=== PATIENT | male | born 1980 | race Caucasian/White ===

== ENCOUNTER → 2016-08-08 | Outpatient (CLI) | payer BC ==
[2016-08-08 15:52] LABS: BASOPHILS # (AUTO) 0.03 10*3/UL; BASOPHILS % (AUTO) 0.7 % (0-1); EOSINOPHILS % (AUTO) 0.2 % (0-8); HEMATOCRIT 43.3 % (42.0-52.0); HEMOGLOBIN 15.5 g/dL (14.0-18.0); IMM GRAN % (AUTO) 0.4 % (0-5); IMM GRAN# (AUTO) 0.02 10*3/UL; LYMPHOCYTES # (AUTO) 0.93 10*3/uL; LYMPHOCYTES % (AUTO) 20.7 % (10-50); MEAN CORPUSCULAR HEMOGLOBIN 30.3 PG (27-31); MEAN CORPUSCULAR HGB CONC 35.8 g/dL (33-37); MEAN PLATELET VOLUME 9.2 FL (7.4-12.2); MONOCYTES # (AUTO) 0.26 10*3/UL (0.3-0.8); MONOCYTES % (AUTO) 5.8 % (5-15); NEUTROPHILS # (AUTO) 3.25 10*3/UL; NEUTROPHILS % (AUTO) 72.2 % (50-80); RDW COEFFICIENT OF VARIATION 13.5 % (11.5-14.5); RED BLOOD COUNT 5.11 10^6/uL (4.70-6.10)
[2016-08-08 16:13] LABS: PLATELET MORPHOLOGY COMMENT NORMAL MORPHOLOGY (NORM)
[2016-08-08 16:50] LABS: CHLORIDE 99 meq/L (98-112); POTASSIUM 4.1 meq/L (3.8-5.2); SODIUM 136 meq/L (135-145)
[2016-08-08 16:51] LABS: ASPARTATE AMINO TRANSFERASE 149 IU/L (21-57); BILIRUBIN,TOTAL 1.1 mg/dL (0.3-1.2); BLOOD UREA NITROGEN 9 mg/dL (7-22); CALCIUM 8.3 mg/dL (8.7-10.7); CREATININE 0.9 mg/dL (0.70-1.50); EST GLOMERULAR FILTRATION > 60 (>60 ml/min/1.73m(2)); GLUCOSE 84 mg/dL (78-110); TOTAL PROTEIN 7.4 g/dL (6.1-8.0)
== END ==
LOC: LAB 15:23
PROVIDERS: ATTEND Internal Medicine
DX: C43.9 Malignant melanoma of skin, unspecified (principal)
CPT/HCPCS: 36415; 80053; 83615; 85025

== ENCOUNTER 2016-08-09 07:29 | Emergency (ER) | payer BC ==
[2016-08-09] MEDS ORDERED: NORMAL SALINE 10 ML SYRINGE FLUSH IVP PRN (07:55)
[2016-08-09 07:58] VITALS: RESP 18
[2016-08-09] MEDS: Sodium Chloride 0.9% 1,000 ML PRIMARY IV ONE ×2 (08:05→11:40)
[2016-08-09] MEDS: ONDANSETRON 4 MG/2 ML VIAL IVP ONE ×2 (08:10→11:39)
[2016-08-09 08:20] LABS: BASOPHILS # (AUTO) 0.02 10*3/UL; BASOPHILS % (AUTO) 0.5 % (0-1); EOSINOPHILS % (AUTO) 0.2 % (0-8); HEMATOCRIT 41.4 % (42.0-52.0); HEMOGLOBIN 14.7 g/dL (14.0-18.0); IMM GRAN % (AUTO) 0.7 % (0-5); IMM GRAN# (AUTO) 0.03 10*3/UL; LYMPHOCYTES # (AUTO) 0.62 10*3/uL; LYMPHOCYTES % (AUTO) 15.4 % (10-50); MEAN CORPUSCULAR HEMOGLOBIN 29.6 PG (27-31); MEAN CORPUSCULAR HGB CONC 35.5 g/dL (33-37); MEAN PLATELET VOLUME 9.7 FL (7.4-12.2); MONOCYTES # (AUTO) 0.18 10*3/UL (0.3-0.8); MONOCYTES % (AUTO) 4.5 % (5-15); NEUTROPHILS # (AUTO) 3.16 10*3/UL; NEUTROPHILS % (AUTO) 78.7 % (50-80); RDW COEFFICIENT OF VARIATION 13.4 % (11.5-14.5); RED BLOOD COUNT 4.96 10^6/uL (4.70-6.10); WHITE BLOOD COUNT 4.02 10^3/uL (4.8-10.8)
[2016-08-09 08:31] LABS: PLATELET MORPHOLOGY COMMENT NORMAL MORPHOLOGY (NORM)
[2016-08-09 08:56] LABS: POTASSIUM 3.8 meq/L (3.8-5.2); SODIUM 130 meq/L (135-145)
[2016-08-09 08:57] LABS: BLOOD UREA NITROGEN 10 mg/dL (7-22); BUN/CREATININE RATIO 11.11 (6-20); CALCIUM 8.2 mg/dL (8.7-10.7); CHLORIDE 97 meq/L (98-112); CREATININE 0.9 mg/dL (0.70-1.50); EST GLOMERULAR FILTRATION > 60 (>60 ml/min/1.73m(2)); GLUCOSE 98 mg/dL (78-110)
[2016-08-09 08:58] LABS: AMYLASE 55 U/L (30-110); ASPARTATE AMINO TRANSFERASE 188 IU/L (21-57); BILIRUBIN,TOTAL 1.8 mg/dL (0.3-1.2)
[2016-08-09 09:22] LABS: BILIRUBIN,URINE NEGATIVE (NEG); CLARITY,URINE CLEAR (CLEAR); GLUCOSE, URINE (UA) NEGATIVE (NEG); LEUKOCYTE ESTERASE ,URINE NEGATIVE (NEG); NITRATE,URINE NEGATIVE (NEG); OCCULT BLOOD,URINE SMALL (NEG); PROTEIN,URINE 30 mg/dl (NEG)
[2016-08-09 09:37] LABS: URINE SAMPLE TYPE PEE BAG COLLECTION
[2016-08-09 09:40] LABS: RBC,URINE 0-1 /hpf; SQUAMOUS EPITHELIAL CELL,UR FEW
--- NOTE | 2016-08-09 09:56 | DI ---
XR CXR 2VW PA/LAT,08/09/2016 7:56 AM: Clinical History: Abdominal pain and shortness of breath Previous Exam: June 03, 2007 Findings: PA and lateral views of the chest are obtained, and demonstrate a nodular interstitial pattern. The c ardiomediastinum and bony thorax are unremarkable. Impression: Nodular interstitial pattern of the lung parenchyma. Differential includes lymphangitic spread of mal ignancy, atypical pneumonia, eosinophilic granuloma or sarcoid. Correlate clinically.
--- NOTE | 2016-08-09 10:19 | DI ---
CT CTA CHEST NONCORONARY W/WO,08/09/2016 9:15 AM: Clinical History: Cough, elevated d-dimer and history of metastatic melanoma. Previous Exam: None at this facility. Findings: Multiple helically acquired CT images are obtained through the chest following the intravenous admini stration of 95 cc of Isovue 300, and demonstrate multiple, too numerous to count nodules throughout t he entirety of both lungs. Within the left hilum, the largest of these nodules is seen measuring 1.8 cm in long axis. The upper abdomen is unremarkable. The skeletal structures are unremarkable as well. The thyroid is also unremarkable. Impression: Multiple bilateral too numerous to count nodules within both lungs most consistent with lymphangitic spread of malignancy.
--- NOTE | 2016-08-09 10:31 | DI ---
CT ABD W/CN AND PELVIS W/CN,08/09/2016 9:16 AM: Clinical History: Abdominal pain and history of melanoma. Previous Exam: April 13, 2012 Findings: Multiple helically acquired CT images are obtained through the abdomen following the intravenous admi nistration of 95 cc of Isovue 300, and demonstrate inflammatory changes in the peripancreatic region. There is a small calcification within the bladder neck and there is dilation of the intrahepatic ramon e ducts. There is some thickening of the gallbladder wall as well with a large amount of inflammatory changes of the right lower quadrant. There is thickening and free fluid along the anterior pararenal fascia w orse on the right than the left. There are multiple enlarged periportal lymph nodes. The spleen, pancreas, adrenals and kidneys are unremarkable. The urinary bladder is unremarkable. The re is no hydronephrosis. There is a small amount of free fluid within the deep pelvis. The appendix is normal. The skeletal unremarkable. The subcutaneous fat is unremarkable. The anterior abdominal wall is unremarkable. Impression: 1. Inflammatory changes predominantly involving the right upper quadrant with some dilation of the in trahepatic biliary ducts. These inflammatory changes involve the anterior pararenal fascia, and there is layering fluid within the deep pelvis. This is believed to be primarily of biliary origin. There are multiple periportal lymph nodes as well. This is believed to be due to acute cholecystitis. Canno t rule out the possibility that the cholecystitis comes from a focal metastatic disease causing obstr uction of the biliary tract.
[2016-08-09 11:00] VITALS: TEMP 100.2
[2016-08-09] MEDS ORDERED: ACETAMINOPHEN 500 MG TABLET PO ONE (11:00)
[2016-08-09] MEDS ORDERED: ACETAMINOPHEN 500 MG TABLET PO SCH (11:00)
[2016-08-09] MEDS ORDERED: ONDANSETRON 4 MG/2 ML VIAL ONE (11:42)
--- NOTE | 2016-08-09 12:39 | PDOC ---
Abdomen/Flank HPI - General Chief Complaint: Abdomen Pain Stated Complaint: abd pain Date Seen by Provider: 08/09/16 Time Seen by Provider: 07:40 Source: POSITIVE: Patient, Spouse Exam Limitations: POSITIVE: No limitations Nurse's Notes Reviewed & Considered: Yes - History of Present Illness Initial Comments: The patient is a 35-year-old male. He presents to the emergency room complaining of a 4-5 day history of right-sided abdominal pain and intermittent fevers, chills cough and some shortness of breath. She's also had some intermittent vomiting. Past medical history is significant in that he has a known history of malignant melanoma. 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 He is known to have metastatic disease to the lung. 9 days ago he was begun on immunotherapy with Yervoy at the cancer care center in [place]. Patient was initially treated at a cancer center in [place] and later transferred referred to the cancer [facility] in [place]. Patient is scheduled to have his immunotherapy continued at the cancer center in [place]. He has an appointment with oncology Friday, 2 days from now. Body Location Affected: REPORTS: Chest (Cough), Abdomen Timing: REPORTS: Gradual Duration: <1 week (4-5 days) Severity: Moderate Quality: REPORTS: "Pain" (Pain Right sided abdominal) Abdominal Pain Onset Location: REPORTS: RUQ, RLQ Abdominal Pain Radiation: REPORTS: No radiation Context: REPORTS: None Modifying Factors: improves with: Coughing, Vomiting Associated Symptoms: REPORTS: Chills, Fever, Nausea, Vomiting. DENIES: Denies symptoms, Back pain, Bloody Emesis, Chest pain, Coffee Grounds Emesis, Diaphoresis, Fatigue, Headache, Heartburn, Loss of Appetite, Rash, Shortness of breath, Swelling/mass in abdomen, Syncope, Testicular Pain, Weakness, Grossly Bloody Diarrhea, Constipation, Diarrhea, Dysuria, Incontinent Stool, Incontinent Urine, Mucous Diarrhea, Difficulty Walking, Dizziness, Light Headedness, Numbness, Other Similar Symptoms Previously: No Recent Care Received: REPORTS: Recently Seen, Treated by ([facility] in [place]) Any Prior Injuries Related to Current Complaint?: No - Patient Home Medications Home Medications: Home Medications Proair Hfa 2 puff INH Q4-6H PRN inhaler 09/11/12 Naproxen Sodium [Aleve] 220 mg PO Q12H PRN 09/28/14 Acetaminophen [Tylenol] 500 mg PO 08/09/16 Guaifenesin [Mucinex] 1,200 mg PO DAILY 08/09/16 Ipilimumab [Yervoy] 1 ml IV 08/09/16 Levothyroxine Sodium 125 mcg PO DAILY 08/09/16 Tramadol HCl 100 mg PO Q4H PRN 08/09/16 - Patient Allergies Allergies/Adverse Reactions: Allergies Allergy/AdvReac Type Severity Reaction Status Date / Time hydromorphone HCl Allergy Anaphylaxis Verified 08/09/16 07:41 [From Dilaudid] hydrocodone AdvReac Intermediate severe Verified 08/09/16 07:41 nausea oxycodone AdvReac Intermediate N/V, Verified 08/09/16 07:41 irritibility codiene AdvReac Intermediate severe Uncoded 08/09/16 07:41 nausea Past Medical History - heen HEENT History: Hard of Hearing, Other (please comment) 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 Cardiovascular History: Denies History Respiratory History: Denies History Gastrointestinal History: Denies History Genitourinary History: Denies History Endocrine History: Denies History Musculoskeletal History: Back Injury Prosthesis or Implant: Yes (VERTBRAL FUSION L5-S1) Neurological History: Motion Sickness Blood Disorders: Denies History Psychiatric History: Denies History History of Sexually Transmitted Diseases: No In Past Year Been Physically Harmed or Verbally Threatened: No History of MDRO: No History of Other Communicable Diseases: No Tobacco Use: Never Smoker Alcohol Use: Occasionally Substance Use Type: None Previous Surgical History: Yes Type / Date of Surgery: 2000 AND 2002 NECK EDISSECTION WITH EXCISION OF LYMPH NODES/LEFT EYE REMOVED DUE TO CA/ PERIRECTAL ABCESS/ SKIN CA / L5-S1 FUSION Anesthesia Reactions: Yes (SEVERE NAUSEA WITH NARCOTICS) Malignant Hyperthermia: No Significant Family History: No pertinent family hx Past Medical History Reviewed: Reviewed - No Changes ROS - Limitations ROS Limitations: No Limitations Constitution: REPORTS: Chills, Fever Cardiovascular: REPORTS: Denies Cardiac Symptoms Respiratory: REPORTS: Cough Non Productive Neurological: REPORTS: Denies Neuro Symptoms Gastrointestinal: REPORTS: Abdominal Pain, Nausea, Vomitting Endocrine: REPORTS: Denies Symptoms Musculoskeletal: REPORTS: Denies MS Symptoms Genitourinary: REPORTS: Denies Symptoms Eyes: REPORTS: Denies Symptoms ENT: REPORTS: Denies Symptoms Skin: REPORTS: Denies Skin Symptoms Lympathic: REPORTS: Denies Lympathic Symptoms Immunologic: POSITIVE: Denies Symptoms Psychiatric: POSITIVE: Denies Psych Symptoms Abdominal/Flank Pain PE - General Appearance General Appearance: POSITIVE: Alert, Cooperative, No Acute Distress, No Evidence of Trauma - HEENT HEENT: POSITIVE: Head Inspection Nml, Ears Inspection Nml, Nose Inspection Nml, Oral/Dental Inspect. Nml, Pharynx Inspect. Nml, PERRL, EOMI. NEGATIVE: Eyes Inspection Nml (Left eye enucleated) - Neck Neck: POSITIVE: Normal Inspection, No Apparent Injury - Respiratory Respiratory: POSITIVE: No Respiratory Distress, Breath Sounds Normal, Chest Non- Tender - Cardiovascular Cardiovascular: POSITIVE: Regular Rate and Rhythm, Heart Sounds Normal, Equal Pulses, Strong Pulses Peripheral Pulses: Radial (R): 2+, Radial (L): 2+ - Chest Chest: POSITIVE: Non Tender - Abdomen Abdomen: Soft: (All Quadrants), Normal Bowel Sounds: (All Quadrants), Denies Tenderness: (LLQ), (LUQ), No Splenomegaly: (All Quadrants), No Hepatomegaly: ( All Quadrants), No Guarding: (All Quadrants), No Rebound: (All Quadrants), No Palpable Pulse: (All Quadrants), No Palpabale Mass: (All Quadrants), No Distention: (All Quadrants), No Rigidity: (All Quadrants), Tenderness Noted: ( RUQ), (LLQ) ([id number] discomfort on palpation) Additional Abdominal Details: Abdominal examination shows bowel sounds to be active. No masses or organomegaly appreciated. Patient does express some discomfort on direct palpation right upper and right lower abdomen. 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 No pulmonary emboli visualized. CT scan abdomen and pelvis shows "inflammatory changes predominantly involving the right upper quadrant with some dilation of the intrahepatic biliary ducts. These inflammatory changes involving the anterior pararenal fascia and there is underlying fluid within the deep pelvis. This is believed to be primarily of biliary origin. There are multiple para portal lymph nodes as well. This is believed to be due to acute cholecystitis. Cannot rule out the possibility that the cholecystitis calms from a focal metastatic disease causing obstruction of the biliary duct." Right upper quadrant ultrasound shows no stones; biliary ducts are not well visualized. The gallbladder wall is thickened to 6 mm. Lab Results Reviewed: Yes (hepatic enzymes elevated; bilirubin 1.8. Amylase and lipase normal) Lab Results:: Laboratory Results 08/09/16 08/09/16 Range/Units 08:17 09:11 WBC 4.02 L (4.8-10.8) 10^3/uL RBC 4.96 (4.70-6.10) 10^6/uL Hgb 14.7 (14.0-18.0) g/dL Hct 41.4 L (42.0-52.0) % MCV 83.5 (80-90) FL MCH 29.6 (27-31) PG MCHC 35.5 (33-37) g/dL RDW Std Deviation 40.4 (39-50) fL RDW Coeff of Liya 13.4 (11.5-14.5) % Plt Count 167 (140-350) 10*3/uL MPV 9.7 (7.4-12.2) FL Immature Gran % (Auto) 0.7 (0-5) % Neut % (Auto) 78.7 (50-80) % Lymph % (Auto) 15.4 (10-50) % [place] % (Auto) 4.5 L (5-15) % Eos % (Auto) 0.2 (0-8) % Baso % (Auto) 0.5 (0-1) % Immature Gran # (Auto) 0.03 10*3/UL Neut # (Auto) 3.16 10*3/UL Lymph # (Auto) 0.62 10*3/uL [place] # (Auto) 0.18 L (0.3-0.8) 10*3/UL Eos # (Auto) 0.01 10*3/UL Baso # (Auto) 0.02 10*3/UL WBC Morphology Comment Normal morphology (NORM) Plt Morphology Comment Normal morphology (NORM) RBC Morph Comment Normal morphology (NORM) D-Dimer 26.13 H (0.00-0.59) mg/L Sodium 130 L (135-145) meq/L Potassium 3.8 (3.8-5.2) meq/L Chloride 97 L (98-112) meq/L Carbon Dioxide 22 L (23-33) meq/L Anion Gap 11 (5-20) BUN 10 (7-22) mg/dL Creatinine 0.9 (0.70-1.50) mg/dL Estimated GFR > 60 (>60 ml/min/1.73m(2)) BUN/Creatinine Ratio 11.11 (6-20) Glucose 98 (78-110) mg/dL Calculated Osmolality 268.0 (267-292) mOsm/kg Lactic Acid 1.6 (0.70-2.10) MMOL/L Calcium 8.2 L (8.7-10.7) mg/dL Total Bilirubin 1.8 H (0.3-1.2) mg/dL AST 188 H (21-57) IU/L ALT 207 H (21-72) IU/L Alkaline Phosphatase 277 H (38-126) IU/L Total Protein 7.0 (6.1-8.0) g/dL Albumin 3.7 (3.5-4.8) g/dL Globulin 3.3 (2.50-4.10) g/dL Albumin/Globulin Ratio 1.10 L (1.3-2.0) mg/g Amylase 55 (30-110) U/L Lipase 62 (23-300) IU/L Ur Collection Type Pee bag collection Urine Color Yellow Urine Clarity Clear (CLEAR) Urine pH 7.0 (5.0-8.5) Ur Specific [place] <=1.005 (1.005-1.030) Urine Protein 30 (NEG) mg/dl Urine Glucose (UA) Negative (NEG) mg/dL Urine Ketones Negative (NEG) Urine Occult Blood Small H (NEG) Urine Nitrate Negative (NEG) Urine Bilirubin Negative (NEG) Urine Urobilinogen 1.0 (0.2) EU/dL Ur Leukocyte Esterase Negative (NEG) Urine RBC 0-1 (NONE) /hpf Urine WBC 1-4 (NONE) Ur Squamous Epith Cells Few (NONE) Ur Renal Epithelial Cell None (NONE) Urine Crystals None Urine Bacteria None (NONE) Urine Casts None (NONE) Urine Mucus None (NONE) Urine Trichomonas None (NONE) Urine Yeast None (NONE) Ur Culture Indicated? Culture not set - Patient's Progress Pain Medication Addressed: POSITIVE: Yes (Recommended Aleve) School/Work Release Addressed: POSITIVE: Not Applicable Re-examine Time: 10:00 Re-Examine Comment: Patient states he feels much better. He's had no nausea or vomiting in the emergency room and states he is getting hungry. HEENT less. I did contact cancer [facility] in [place] and spoke with the patient' s case finisher, Heather Salazar. She really had nothing to add to the case but she did asked that we send CDs of the radiographic studies to them in [place]. Re-Examine Time: 12:45 Re-Examine Comment: And trying to contact , patient's oncologist in [place]; he's not called back after an hour of trying. We'll continue to try. Status: POSITIVE: Improved, Re-Examined - Consult Counseled: POSITIVE: Patient, Family, RE: Lab Results, RE: Radiology Results, RE : DX, RE: Need for F/U Patient Care Time - Estimated PCT Patient Care Time (In Minutes): 75 Vital Signs - Recent Vital Signs Vital Signs: Vital Signs (Last 8 hours) Temp Pulse Resp BP Pulse Ox 08/09/16 10:58 100.2 F H 08/09/16 06:33 97.8 F 114 H 18 117/94 94 - VS Reviewed Vital Signs Reviewed: Yes Discharge Clinical Impression: Abdominal pain, Cholecystitis, Melanoma Discharge Disposition: Against Medical Advice Condition: Fair Patient Instructions Given at Discharge: Cholecystitis (ED), Acute Nausea and Vomiting (ED), Acute Abdominal Pain (ED) Additional Instructions: Your extensive evaluation in the emergency room reveals that her abdominal pain and vomiting is most likely caused by an inflammation of the gallbladder, a condition known as cholecystitis. CAT scan of your abdomen showed dilation of the gallbladder ducts and inflammatory changes and some fluid in the deep pelvis. It is possible that he'll cholecystitis may be due to a focal metastatic lesion causing obstruction of the biliary tract. Gallbladder ultrasound did not show any stones in the gallbladder, which can also cause these symptoms. I have advised that she'll be admitted for further evaluation of this condition. I'm glad you're feeling better, but the underlying problem still exists. Follow-up with your oncologist today after Friday as is already arranged. Return here anytime if condition worsens in any way, especially if you develop fevers and chills, severe abdominal pain, or if condition worsens in any way. He has signed a statement stating that you have refused medical advice to be admitted for further evaluation. However, please feel free to return if condition worsens in any way. Follow-up with your oncologist Friday. Clear liquid diet for 24 hours. Follow Up With: NONE,NONE [Primary Care Provider] - (Follow-up with your oncologist in [place] Friday as is already arranged. Return here anytime if condition worsens in any way.)
--- NOTE | 2016-08-09 13:45 | DI ---
US ABDOMEN LIMITED,08/09/2016 11:14 AM: Clinical History: Right upper quadrant and right lower quadrant pain with nausea, vomiting and weight loss with history of melanoma and chemotherapy. Previous Exam: CT abdomen pelvis performed on the same date. Findings: Grayscale and color Doppler sonographic images are obtained of the right upper quadrant. The pancreas is not well seen. The liver is grossly normal. The dilated intrahepatic ducts were not well seen on this exam. The right kidney is normal measuring 13.3 cm in length. The gallbladder demonstrated a thickened gallbladder wall consistent with what was seen on the CT. A negative Sonographic Thomas's sign is obtained. No stones were seen. The lymph nodes within the eduardo hepatis are not well evaluated on this exam. The aorta was normal. Impression: Thickened gallbladder wall without a positive Thomas's sign. This may be because the inflammatory diann nges seen on CT are secondary and not primary to the gallbladder.
== END 2016-08-09 12:41 | disposition home or self-care (01) ==
LOC: ER 07:29
DX: K81.0 Acute cholecystitis (principal); R10.12 Left upper quadrant pain; R10.11 Right upper quadrant pain; R05 Cough; R06.02 Shortness of breath; R11.10 Vomiting, unspecified; C43.22 Malignant melanoma of left ear and external auricular canal; C78.00 Secondary malignant neoplasm of unspecified lung
CPT/HCPCS: 36415; 71020; 71275; 74177; 76705; 80053; 81001; 81003; 82150; 83605; 83690; 85025; 85379; 87040; 87804; 96361; 96374; 99283; J2405; J7030

== ENCOUNTER → 2016-08-16 | Outpatient (CLI) | payer BC ==
[2016-08-16 12:52] LABS: ASPARTATE AMINO TRANSFERASE 104 IU/L (21-57); BILIRUBIN,TOTAL 2.1 mg/dL (0.3-1.2); BLOOD UREA NITROGEN 17 mg/dL (7-22); BUN/CREATININE RATIO 21.25 (6-20); CALCIUM 8.4 mg/dL (8.7-10.7); CHLORIDE 101 meq/L (98-112); CREATININE 0.8 mg/dL (0.70-1.50); EST GLOMERULAR FILTRATION > 60 (>60 ml/min/1.73m(2)); GLUCOSE 164 mg/dL (78-110); POTASSIUM 4.1 meq/L (3.8-5.2); SODIUM 135 meq/L (135-145); TOTAL PROTEIN 7.2 g/dL (6.1-8.0)
[2016-08-16 13:36] LABS: BASOPHILS # (AUTO) 0.02 10*3/UL; BASOPHILS % (AUTO) 0.2 % (0-1); EOSINOPHILS % (AUTO) 0.1 % (0-8); HEMATOCRIT 40.3 % (42.0-52.0); HEMOGLOBIN 14.5 g/dL (14.0-18.0); IMM GRAN# (AUTO) 0.34 10*3/UL; LYMPHOCYTES # (AUTO) 0.76 10*3/uL; MEAN CORPUSCULAR HEMOGLOBIN 30.1 PG (27-31); MEAN PLATELET VOLUME 9.6 FL (7.4-12.2); MONOCYTES # (AUTO) 0.35 10*3/UL (0.3-0.8); MONOCYTES % (AUTO) 4.2 % (5-15); NEUTROPHILS # (AUTO) 6.95 10*3/UL; NEUTROPHILS % (AUTO) 82.5 % (50-80); RDW COEFFICIENT OF VARIATION 14.7 % (11.5-14.5); RED BLOOD COUNT 4.81 10^6/uL (4.70-6.10); WHITE BLOOD COUNT 8.43 10^3/uL (4.8-10.8)
[2016-08-16 13:37] LABS: PLATELET MORPHOLOGY COMMENT NORMAL MORPHOLOGY (NORM)
== END ==
LOC: LAB 12:27
PROVIDERS: ATTEND Internal Medicine
DX: C43.9 Malignant melanoma of skin, unspecified (principal)
CPT/HCPCS: 36415; 80053; 83615; 85025

== ENCOUNTER → 2016-08-19 | Outpatient (CLI) | payer BC ==
[2016-08-19 15:45] LABS: ASPARTATE AMINO TRANSFERASE 52 IU/L (21-57); BILIRUBIN,TOTAL 1.6 mg/dL (0.3-1.2); BLOOD UREA NITROGEN 14 mg/dL (7-22); CALCIUM 8.9 mg/dL (8.7-10.7); CHLORIDE 103 meq/L (98-112); CREATININE 0.7 mg/dL (0.70-1.50); EST GLOMERULAR FILTRATION > 60 (>60 ml/min/1.73m(2)); GLUCOSE 143 mg/dL (78-110); POTASSIUM 4.7 meq/L (3.8-5.2); SODIUM 134 meq/L (135-145); TOTAL PROTEIN 7.9 g/dL (6.1-8.0)
== END ==
LOC: LAB 15:25
PROVIDERS: ATTEND Internal Medicine
DX: C43.9 Malignant melanoma of skin, unspecified (principal)
CPT/HCPCS: 36415; 80053

== ENCOUNTER → 2016-08-26 | Outpatient (CLI) | payer BC ==
[2016-08-26 17:37] LABS: ASPARTATE AMINO TRANSFERASE 49 IU/L (21-57); BILIRUBIN,TOTAL 1.1 mg/dL (0.3-1.2); BLOOD UREA NITROGEN 17 mg/dL (7-22); BUN/CREATININE RATIO 18.88 (6-20); CALCIUM 10.1 mg/dL (8.7-10.7); CHLORIDE 99 meq/L (98-112); CREATININE 0.9 mg/dL (0.70-1.50); EST GLOMERULAR FILTRATION > 60 (>60 ml/min/1.73m(2)); GLUCOSE 152 mg/dL (78-110); POTASSIUM 4.9 meq/L (3.8-5.2); SODIUM 135 meq/L (135-145)
== END ==
LOC: LAB 13:44
PROVIDERS: ATTEND Internal Medicine
DX: C43.9 Malignant melanoma of skin, unspecified (principal)
CPT/HCPCS: 80053

== ENCOUNTER → 2016-08-30 | Outpatient (CLI) | payer BC ==
[2016-08-30 09:56] LABS: ASPARTATE AMINO TRANSFERASE 60 IU/L (21-57); BLOOD UREA NITROGEN 14 mg/dL (7-22); BUN/CREATININE RATIO 15.55 (6-20); CALCIUM 9.6 mg/dL (8.7-10.7); CHLORIDE 101 meq/L (98-112); CREATININE 0.9 mg/dL (0.70-1.50); EST GLOMERULAR FILTRATION > 60 (>60 ml/min/1.73m(2)); GLUCOSE 101 mg/dL (78-110); POTASSIUM 4.3 meq/L (3.8-5.2); SODIUM 134 meq/L (135-145); TOTAL PROTEIN 7.6 g/dL (6.1-8.0)
[2016-08-30 10:08] LABS: BASOPHILS # (AUTO) 0.05 10*3/UL; BASOPHILS % (AUTO) 0.5 % (0-1); EOSINOPHILS % (AUTO) 0.3 % (0-8); HEMATOCRIT 44.5 % (42.0-52.0); HEMOGLOBIN 15.5 g/dL (14.0-18.0); LYMPHOCYTES # (AUTO) 0.66 10*3/uL; LYMPHOCYTES % (AUTO) 6.5 % (10-50); MEAN CORPUSCULAR HEMOGLOBIN 29.8 PG (27-31); MEAN CORPUSCULAR HGB CONC 34.8 g/dL (33-37); MEAN PLATELET VOLUME 8.8 FL (7.4-12.2); MONOCYTES # (AUTO) 0.49 10*3/UL (0.3-0.8); MONOCYTES % (AUTO) 4.8 % (5-15); NEUTROPHILS # (AUTO) 8.79 10*3/UL; NEUTROPHILS % (AUTO) 86.9 % (50-80); RDW COEFFICIENT OF VARIATION 15.5 % (11.5-14.5); RED BLOOD COUNT 5.21 10^6/uL (4.70-6.10); WHITE BLOOD COUNT 10.12 10^3/uL (4.8-10.8)
[2016-08-30 10:15] LABS: PLATELET MORPHOLOGY COMMENT NORMAL MORPHOLOGY (NORM)
== END ==
LOC: LAB 09:12
PROVIDERS: ATTEND Internal Medicine
DX: C43.9 Malignant melanoma of skin, unspecified (principal)
CPT/HCPCS: 36415; 80053; 85025

== ENCOUNTER → 2016-09-02 | Outpatient (CLI) | payer BC ==
[2016-09-02 13:15] LABS: ASPARTATE AMINO TRANSFERASE 102 IU/L (21-57); BILIRUBIN,TOTAL 0.8 mg/dL (0.3-1.2); BLOOD UREA NITROGEN 15 mg/dL (7-22); BUN/CREATININE RATIO 18.75 (6-20); CALCIUM 9.4 mg/dL (8.7-10.7); CHLORIDE 101 meq/L (98-112); CREATININE 0.8 mg/dL (0.70-1.50); EST GLOMERULAR FILTRATION > 60 (>60 ml/min/1.73m(2)); GLUCOSE 173 mg/dL (78-110); POTASSIUM 4.7 meq/L (3.8-5.2); SODIUM 138 meq/L (135-145); TOTAL PROTEIN 7.7 g/dL (6.1-8.0)
[2016-09-02 13:21] LABS: BASOPHILS # (AUTO) 0.02 10*3/UL; BASOPHILS % (AUTO) 0.2 % (0-1); EOSINOPHILS % (AUTO) 0.1 % (0-8); HEMATOCRIT 44.9 % (42.0-52.0); HEMOGLOBIN 15.6 g/dL (14.0-18.0); IMM GRAN# (AUTO) 0.08 10*3/UL; LYMPHOCYTES # (AUTO) 1.06 10*3/uL; LYMPHOCYTES % (AUTO) 12.7 % (10-50); MEAN CORPUSCULAR HEMOGLOBIN 29.8 PG (27-31); MEAN CORPUSCULAR HGB CONC 34.7 g/dL (33-37); MEAN PLATELET VOLUME 8.8 FL (7.4-12.2); MONOCYTES % (AUTO) 3.6 % (5-15); NEUTROPHILS # (AUTO) 6.86 10*3/UL; NEUTROPHILS % (AUTO) 82.4 % (50-80); RDW COEFFICIENT OF VARIATION 15.6 % (11.5-14.5); RED BLOOD COUNT 5.24 10^6/uL (4.70-6.10); WHITE BLOOD COUNT 8.33 10^3/uL (4.8-10.8)
[2016-09-02 13:24] LABS: PLATELET MORPHOLOGY COMMENT NORMAL MORPHOLOGY (NORM)
== END ==
LOC: LAB 12:41
DX: C43.9 Malignant melanoma of skin, unspecified (principal)
CPT/HCPCS: 36415; 80053; 85025

== ENCOUNTER → 2016-09-16 | Outpatient (CLI) | payer BC ==
[2016-09-16 12:21] LABS: BASOPHILS # (AUTO) 0.08 10*3/UL; BASOPHILS % (AUTO) 0.6 % (0-1); EOSINOPHILS % (AUTO) 0.6 % (0-8); HEMATOCRIT 46.7 % (42.0-52.0); HEMOGLOBIN 16.3 g/dL (14.0-18.0); IMM GRAN % (AUTO) 1.1 % (0-5); IMM GRAN# (AUTO) 0.16 10*3/UL; LYMPHOCYTES # (AUTO) 1.56 10*3/uL; LYMPHOCYTES % (AUTO) 10.8 % (10-50); MEAN CORPUSCULAR HEMOGLOBIN 29.7 PG (27-31); MEAN CORPUSCULAR HGB CONC 34.9 g/dL (33-37); MEAN PLATELET VOLUME 8.2 FL (7.4-12.2); MONOCYTES # (AUTO) 0.62 10*3/UL (0.3-0.8); MONOCYTES % (AUTO) 4.3 % (5-15); NEUTROPHILS # (AUTO) 11.96 10*3/UL; NEUTROPHILS % (AUTO) 82.6 % (50-80); RDW COEFFICIENT OF VARIATION 15.4 % (11.5-14.5); RED BLOOD COUNT 5.49 10^6/uL (4.70-6.10); WHITE BLOOD COUNT 14.47 10^3/uL (4.8-10.8)
[2016-09-16 12:22] LABS: PLATELET MORPHOLOGY COMMENT NORMAL MORPHOLOGY (NORM)
[2016-09-16 12:31] LABS: ASPARTATE AMINO TRANSFERASE 49 IU/L (21-57); BILIRUBIN,TOTAL 0.6 mg/dL (0.3-1.2); BLOOD UREA NITROGEN 14 mg/dL (7-22); CALCIUM 9.4 mg/dL (8.7-10.7); CHLORIDE 100 meq/L (98-112); CREATININE 0.7 mg/dL (0.70-1.50); EST GLOMERULAR FILTRATION > 60 (>60 ml/min/1.73m(2)); GLUCOSE 131 mg/dL (78-110); SODIUM 136 meq/L (135-145); TOTAL PROTEIN 7.9 g/dL (6.1-8.0)
== END ==
LOC: LAB 12:04
PROVIDERS: ATTEND Internal Medicine Medical Oncology
DX: C43.9 Malignant melanoma of skin, unspecified (principal)
CPT/HCPCS: 36415; 80053; 85025

== ENCOUNTER 2016-09-27 15:20 | Outpatient (CLI) | payer BC ==
[~2016-09-27 15:20] MED LIST: ASCORBIC ACID IV ONE; ASCORBIC ACID IV SCH; HEPARIN 500 UNIT/5 ML SYRINGE FOR CENTRAL LINE IVP PRN; Magnesium Sulfate 2gm (Premix) 2 GM in Premix 1 BAG IV ONE; NORMAL SALINE 10 ML SYRINGE FLUSH IVP PRN; STERILE FOR IV ONE; STERILE FOR IV SCH; WATER IV ONE; WATER IV SCH
[2016-09-27 18:53] VITALS: RESP 22; TEMP 98.3
[2016-09-30] MEDS ORDERED: ASPIRIN 81 MG (BABY) CHEWABLE TABLET ONE (20:20)
[2016-09-30] MEDS ORDERED: Sodium Chloride 0.9% 1,000 ML ONE (20:20)
== END 2016-09-29 08:00 | disposition home or self-care (01) ==
LOC: IV THERAPY 15:20
PROVIDERS: ATTEND Emergency Medicine
DX: C43.9 Malignant melanoma of skin, unspecified (principal)
CPT/HCPCS: 96365; 96366; 96367; 99211; A4216; J3475; J7030

== ENCOUNTER → 2016-10-08 | Outpatient (CLI) | payer BC ==
[2016-10-08 10:50] LABS: BASOPHILS # (AUTO) 0.09 10*3/UL; BASOPHILS % (AUTO) 0.5 % (0-1); EOSINOPHILS % (AUTO) 0.9 % (0-8); HEMATOCRIT 46.6 % (42.0-52.0); HEMOGLOBIN 15.9 g/dL (14.0-18.0); IMM GRAN# (AUTO) 0.17 10*3/UL; LYMPHOCYTES # (AUTO) 4.73 10*3/uL; LYMPHOCYTES % (AUTO) 27.1 % (10-50); MEAN CORPUSCULAR HEMOGLOBIN 29.3 PG (27-31); MEAN CORPUSCULAR HGB CONC 34.1 g/dL (33-37); MEAN PLATELET VOLUME 8.5 FL (7.4-12.2); MONOCYTES # (AUTO) 1.34 10*3/UL (0.3-0.8); MONOCYTES % (AUTO) 7.7 % (5-15); NEUTROPHILS % (AUTO) 62.8 % (50-80); RDW COEFFICIENT OF VARIATION 15.1 % (11.5-14.5); RED BLOOD COUNT 5.42 10^6/uL (4.70-6.10); WHITE BLOOD COUNT 17.48 10^3/uL (4.8-10.8)
[2016-10-08 10:52] LABS: PLATELET MORPHOLOGY COMMENT NORMAL MORPHOLOGY (NORM)
[2016-10-08 10:57] LABS: ASPARTATE AMINO TRANSFERASE 23 IU/L (21-57); BILIRUBIN,TOTAL 0.5 mg/dL (0.3-1.2); BLOOD UREA NITROGEN 20 mg/dL (7-22); BUN/CREATININE RATIO 22.22 (6-20); CALCIUM 9.9 mg/dL (8.7-10.7); CHLORIDE 99 meq/L (98-112); CREATININE 0.9 mg/dL (0.70-1.50); EST GLOMERULAR FILTRATION > 60 (>60 ml/min/1.73m(2)); GLUCOSE 107 mg/dL (78-110); POTASSIUM 3.8 meq/L (3.8-5.2); SODIUM 136 meq/L (135-145)
== END ==
LOC: LAB 10:30
PROVIDERS: ATTEND Internal Medicine Medical Oncology
DX: C43.9 Malignant melanoma of skin, unspecified (principal)
CPT/HCPCS: 36415; 80053; 85025

== ENCOUNTER → 2016-10-28 | Outpatient (CLI) | payer BC ==
[2016-10-28 11:11] LABS: BASOPHILS # (AUTO) 0.01 10*3/UL; BASOPHILS % (AUTO) 0 % (0-1); EOSINOPHILS # (AUTO) 0.03 10*3/UL; EOSINOPHILS % (AUTO) 0.1 % (0-8); HEMATOCRIT 47.8 % (42.0-52.0); HEMOGLOBIN 16.8 g/dL (14.0-18.0); MEAN CORPUSCULAR HEMOGLOBIN 29.8 PG (27-31); MEAN CORPUSCULAR HGB CONC 35.1 g/dL (33-37); MEAN CORPUSCULAR VOLUME 84.9 FL (80-90); MEAN PLATELET VOLUME 8.5 FL (7.4-12.2); MONOCYTES # (AUTO) 0.52 10*3/UL (0.3-0.8); MONOCYTES % (AUTO) 2.6 % (5-15); NEUTROPHILS % (AUTO) 83.8 % (50-80); RED BLOOD COUNT 5.63 10^6/uL (4.70-6.10)
[2016-10-28 11:12] LABS: PLATELET MORPHOLOGY COMMENT NORMAL MORPHOLOGY (NORM); RBC MORPHOLOGY COMMENT NORMAL MORPHOLOGY (NORM); WBC MORPHOLOGY COMMENT NORMAL MORPHOLOGY (NORM)
[2016-10-28 11:29] LABS: BLOOD UREA NITROGEN 22 mg/dL (7-22); CALCIUM 9.4 mg/dL (8.7-10.7); EST GLOMERULAR FILTRATION > 60 (>60 ml/min/1.73m(2)); SERUM ALBUMIN 4.3 g/dL (3.5-4.8)
[2016-10-28 14:16] LABS: VITAMIN D 25-HYDROXY 36.3 NG/ML (30-100)
== END ==
LOC: LAB 10:52
PROVIDERS: ATTEND Internal Medicine Medical Oncology
DX: C43.9 Malignant melanoma of skin, unspecified (principal); E03.9 Hypothyroidism, unspecified
CPT/HCPCS: 36415; 80053; 82306; 84443; 85025

== ENCOUNTER 2016-11-04 14:21 | Outpatient (CLI) | payer BC ==
[2016-11-04] MEDS ORDERED: Magnesium Sulfate 2gm (Premix) 2 GM in Premix 1 BAG IV ONE (14:30)
[2016-11-04] MEDS ORDERED: LIDOCAINE W/ SODIUM BICARB 0.5 ML SYR SUBD PRN (14:30)
[2016-11-04] MEDS ORDERED: NORMAL SALINE 10 ML SYRINGE FLUSH IVP PRN (14:30)
[2016-11-04] MEDS ORDERED: HEPARIN 500 UNIT/5 ML SYRINGE FOR CENTRAL LINE IVP PRN (14:30)
[2016-11-04 14:34] VITALS: RESP 22; TEMP 97.5
[2016-11-04] MEDS ORDERED: ASCORBIC ACID IV ONE (14:45)
[2016-11-04] MEDS ORDERED: WATER FOR INJECTION STERILE IV ONE (14:45)
== END 2016-11-10 10:00 | disposition home or self-care (01) ==
LOC: IV THERAPY 14:21
PROVIDERS: ATTEND Family Medicine
DX: C43.9 Malignant melanoma of skin, unspecified (principal)
CPT/HCPCS: 96365; 96375; 99211; J3475

== ENCOUNTER → 2016-11-13 | Outpatient (CLI) | payer BC ==
[2016-11-13 11:27] LABS: BASOPHILS # (AUTO) 0.04 10*3/UL; BASOPHILS % (AUTO) 0.2 % (0-1); EOSINOPHILS # (AUTO) 0.03 10*3/UL; EOSINOPHILS % (AUTO) 0.2 % (0-8); HEMATOCRIT 45.8 % (42.0-52.0); HEMOGLOBIN 16.1 g/dL (14.0-18.0); LYMPHOCYTES # (AUTO) 2.98 10*3/uL; MEAN CORPUSCULAR HEMOGLOBIN 30.1 PG (27-31); MEAN CORPUSCULAR HGB CONC 35.2 g/dL (33-37); MEAN CORPUSCULAR VOLUME 85.6 FL (80-90); MONOCYTES # (AUTO) 0.68 10*3/UL (0.3-0.8); NEUTROPHILS # (AUTO) 13.02 10*3/UL; NEUTROPHILS % (AUTO) 77.2 % (50-80); RED BLOOD COUNT 5.35 10^6/uL (4.70-6.10)
[2016-11-13 11:29] LABS: PLATELET MORPHOLOGY COMMENT NORMAL MORPHOLOGY (NORM); RBC MORPHOLOGY COMMENT NORMAL MORPHOLOGY (NORM); WBC MORPHOLOGY COMMENT NORMAL MORPHOLOGY (NORM)
[2016-11-13 11:33] LABS: BLOOD UREA NITROGEN 20 mg/dL (7-22); BUN/CREATININE RATIO 22.22 (6-20); CALCIUM 9.4 mg/dL (8.7-10.7); EST GLOMERULAR FILTRATION > 60 (>60 ml/min/1.73m(2)); SERUM ALBUMIN 4.2 g/dL (3.5-4.8)
== END ==
LOC: LAB 11:03
PROVIDERS: ATTEND Internal Medicine Medical Oncology
DX: C43.9 Malignant melanoma of skin, unspecified (principal)
CPT/HCPCS: 36415; 80053; 85025

== ENCOUNTER 2016-11-19 10:01 | Outpatient (CLI) | payer BC ==
[~2016-11-19 10:01] MED LIST changes: -ASCORBIC ACID IV ONE; -ASCORBIC ACID IV SCH; -HEPARIN 500 UNIT/5 ML SYRINGE FOR CENTRAL LINE IVP PRN; +LIDOCAINE W/ SODIUM BICARB 0.5 ML SYR SUBD PRN; -Magnesium Sulfate 2gm (Premix) 2 GM in Premix 1 BAG IV ONE; -STERILE FOR IV ONE; -STERILE FOR IV SCH; -WATER IV ONE; -WATER IV SCH
[2016-11-19] MEDS ORDERED: MAGNESIUM SULFATE IV ONE (10:30)
[2016-11-19] MEDS ORDERED: ASCORBIC ACID IV ONE (10:30)
[2016-11-19] MEDS ORDERED: [UNRECOGNIZED DRUG - OTHER] IV ONE (10:30)
[2016-11-19 10:31] VITALS: RESP 24; TEMP 97.8
== END 2016-11-19 13:31 | disposition home or self-care (01) ==
LOC: IV THERAPY 10:01
PROVIDERS: ATTEND Personal Emergency Response Attendant
DX: C43.9 Malignant melanoma of skin, unspecified (principal)
CPT/HCPCS: 96365; 96366; 99211; J3475

== ENCOUNTER → 2016-11-26 | Outpatient (CLI) | payer BC ==
[2016-11-26 10:49] LABS: BASOPHILS # (AUTO) 0.11 10*3/UL; BASOPHILS % (AUTO) 0.5 % (0-1); EOSINOPHILS # (AUTO) 0.05 10*3/UL; EOSINOPHILS % (AUTO) 0.2 % (0-8); HEMATOCRIT 47.6 % (42.0-52.0); HEMOGLOBIN 16.8 g/dL (14.0-18.0); LYMPHOCYTES # (AUTO) 3.67 10*3/uL; MEAN CORPUSCULAR HEMOGLOBIN 29.9 PG (27-31); MEAN CORPUSCULAR HGB CONC 35.3 g/dL (33-37); MEAN CORPUSCULAR VOLUME 84.7 FL (80-90); MEAN PLATELET VOLUME 8.8 FL (7.4-12.2); MONOCYTES # (AUTO) 1.28 10*3/UL (0.3-0.8); MONOCYTES % (AUTO) 5.6 % (5-15); NEUTROPHILS # (AUTO) 17.37 10*3/UL; NEUTROPHILS % (AUTO) 76.4 % (50-80); RED BLOOD COUNT 5.62 10^6/uL (4.70-6.10)
[2016-11-26 10:50] LABS: PLATELET MORPHOLOGY COMMENT NORMAL MORPHOLOGY (NORM); RBC MORPHOLOGY COMMENT NORMAL MORPHOLOGY (NORM); WBC MORPHOLOGY COMMENT NORMAL MORPHOLOGY (NORM)
[2016-11-26 11:25] LABS: BLOOD UREA NITROGEN 24 mg/dL (7-22); CALCIUM 10.4 mg/dL (8.7-10.7); EST GLOMERULAR FILTRATION > 60 (>60 ml/min/1.73m(2)); SERUM ALBUMIN 4.2 g/dL (3.5-4.8)
== END ==
LOC: LAB 10:36
PROVIDERS: ATTEND Internal Medicine Medical Oncology
DX: C43.9 Malignant melanoma of skin, unspecified (principal)
CPT/HCPCS: 36415; 80053; 85025

== ENCOUNTER 2016-12-02 09:02 | Outpatient (CLI) | payer BC ==
[~2016-12-02 09:02] MED LIST changes: +HEPARIN 500 UNIT/5 ML SYRINGE FOR CENTRAL LINE IVP PRN; -LIDOCAINE W/ SODIUM BICARB 0.5 ML SYR SUBD PRN
[2016-12-02 09:15] VITALS: RESP 24; TEMP 97.7
[2016-12-02] MEDS ORDERED: ASCORBIC ACID IV ONE (09:15)
[2016-12-02] MEDS ORDERED: [UNRECOGNIZED DRUG - OTHER] IV ONE (09:15)
[2016-12-02] MEDS ORDERED: MAGNESIUM SULFATE IV ONE (09:15)
[2016-12-04] MEDS ORDERED: MORPHINE SULFATE 4 MG/1 ML ONE (12:14)
== END 2016-12-02 17:00 ==
LOC: IV THERAPY 09:02
PROVIDERS: ATTEND Emergency Medicine
DX: C43.9 Malignant melanoma of skin, unspecified (principal)
CPT/HCPCS: 96365; 96366; 99211; J3475; J2270

== ENCOUNTER 2016-12-03 11:10 | Emergency (ER) | payer BC ==
[2016-12-03] MEDS ORDERED: Sodium Chloride 0.9% 1,000 ML PRIMARY IV ONE (11:29)
--- NOTE | 2016-12-03 11:36 | PDOC ---
Gen Adult / Medical Screen HPI - General Chief Complaint: General Medical Stated Complaint: ELEVATED BLOOD PRESSURE (SIDE EFFECT OF CHEMO MED) Date Seen by Provider: 12/03/16 Time Seen by Provider: 11:30 Source: POSITIVE: Patient, Spouse Exam Limitations: POSITIVE: No limitations Nurse's Notes Reviewed & Considered: Yes - Indicators Temperature Between 95 and 101 Degrees: Yes Respirations Between 12 and 20: Yes Blood Pressure Between 100-165 (sys) and 60-100 (carey): Yes Pulse Range Between 60-105 (100 for age > 60 years): Yes Severe Pain (Greater than 5/10 Reported): No Chest or Abdominal Pain: No Inability to Walk: No Pt Reports Active High Risk Cond. (TB/Hepatitis/HIV/Chemo): No Abnormal Mental Status: No - History of Present Illness Initial Comments: Mr. Whitley is a patient well-known to me who comes in today because of blood pressure problems. Mr. Whitley is presently undergoing chemotherapy for recurrent metastatic melanoma. He has been having recurring bouts of hypertension specifically diastolic hypertension with blood pressures as high as 176/154. He has these episodes of high blood pressure he is quite anxious and feels the pressure going up. In addition he develops a cough and has shortness of breath. Blood pressure was up earlier today and his and the nurse that he sees encouraged him to come in for further evaluation. Presently his blood pressure is 145/90 and his pulse rate is 116. He states that presently he feels very well. Denies any fever chills or sweats, nausea vomiting or diarrhea, no hematuria or dysuria, no chest pain or shortness of breath. No headache. Timing: REPORTS: Intermittent Similar Symptoms Previously: Yes Recent Care Received: REPORTS: Other (Presently undergoing chemotherapy for recurrent melanoma that is metastatic.) Any Prior Injuries Related to Current Complaint?: No - Patient Home Medications Home Medications: Home Medications Proair Hfa 2 puff INH Q4-6H PRN inhaler 09/11/12 Levothyroxine Sodium 137 mcg PO DAILY 08/09/16 Tramadol HCl 50 mg PO Q6H PRN 08/09/16 Cholecalciferol [Vitamin D] 5,000 PO DAILY 09/27/16 LORazepam Tab [Ativan Tab] 1 mg PO Q6H PRN 09/27/16 Prednisone 80 mg PO DAILY 09/27/16 Albuterol/Ipratrop Neb Soln [Duoneb Neb Soln] 3 ml NEB Q6H 12/03/16 Mekkinst 1 tab PO BEDTIME 12/03/16 Ubidecarenone [Co Q-10] 100 mg PO DAILY 12/03/16 - Patient Allergies Allergies/Adverse Reactions: Allergies Allergy/AdvReac Type Severity Reaction Status Date / Time hydromorphone HCl Allergy Anaphylaxis Verified 12/03/16 11:20 [From Dilaudid] hydrocodone AdvReac Intermediate severe Verified 12/03/16 11:20 nausea oxycodone AdvReac Intermediate N/V, Verified 12/03/16 11:20 irritibility codiene AdvReac Intermediate severe Uncoded 12/03/16 11:20 nausea Past Medical History - heen HEENT History: Hard of Hearing, Other (please comment) 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 Cardiovascular History: Denies History Respiratory History: Denies History Gastrointestinal History: Denies History Genitourinary History: Denies History Endocrine History: Denies History Musculoskeletal History: Back Injury Prosthesis or Implant: Yes (VERTBRAL FUSION L5-S1) Neurological History: Motion Sickness Blood Disorders: Denies History Psychiatric History: Denies History History of Sexually Transmitted Diseases: No History of MDRO: No History of Other Communicable Diseases: No Alcohol Use: Occasionally Substance Use Type: None Previous Surgical History: Yes Type / Date of Surgery: 2000 AND 2002 NECK EDISSECTION WITH EXCISION OF LYMPH NODES/LEFT EYE REMOVED DUE TO CA/ PERIRECTAL ABCESS/ SKIN CA / L5-S1 FUSION Anesthesia Reactions: Yes (SEVERE NAUSEA WITH NARCOTICS) Malignant Hyperthermia: No Significant Family History: No pertinent family hx ROS - Limitations ROS Limitations: No Limitations Constitution: REPORTS: Denies Symptoms Cardiovascular: REPORTS: Denies Cardiac Symptoms Respiratory: REPORTS: Cough Non Productive, Shortness Of Breath Neurological: REPORTS: Denies Neuro Symptoms Gastrointestinal: REPORTS: Denies GI Symptoms Endocrine: REPORTS: Denies Symptoms Musculoskeletal: REPORTS: Denies MS Symptoms Genitourinary: REPORTS: Denies Symptoms Eyes: REPORTS: Denies Symptoms ENT: REPORTS: Denies Symptoms Skin: REPORTS: Denies Skin Symptoms Lympathic: REPORTS: Denies Lympathic Symptoms Immunologic: POSITIVE: Denies Symptoms Psychiatric: POSITIVE: Denies Psych Symptoms Gen Adult/Medical Screen Exam - General Appearance General Appearance: POSITIVE: Alert, Cooperative, No Acute Distress, No Evidence of Trauma - HEENT HEENT: POSITIVE: Head Inspection Nml, Eyes Inspection Nml, Ears Inspection Nml, Nose Inspection Nml, PERRL, EOMI - Pupils Pupil Size: 5 mm: Bilateral - Neck Neck: POSITIVE: Normal Inspection, Thyroid Normal - Respiratory Respiratory: POSITIVE: No Respiratory Distress, Breath Sounds Normal, Chest Non- Tender - Cardiovascular Cardiovascular: POSITIVE: No Murmur, No Gallop, PMI Normal, Tachycardia - Abdomen Abdomen: Soft: (All Quadrants), Normal Bowel Sounds: (All Quadrants), Denies Tenderness: (All Quadrants) - Back Back: POSITIVE: Normal Inspection - Neurological / Psychological Mental Status: POSITIVE: Mood Normal, Affect Normal Orientation: POSITIVE: Oriented x 3 - Skin Skin: POSITIVE: Normal Color, Warm, Dry, No Rash - Extremities Extremity: Non-Tender: (All Extremities), Normal ROM: (All Extremities), Normal Inspection: (All Extremities), Pelvis Stable: (All Extremities) Procedures - Laceration/Wound Repair Did patient have a laceration repair: No Gen Adlt/Medical Scrn Progress - Results Reviewed by me Lab Results:: Laboratory Results 12/03/16 Range/Units 12:33 WBC 20.71 H (4.8-10.8) 10^3/uL RBC 5.29 (4.70-6.10) 10^6/uL Hgb 16.2 (14.0-18.0) g/dL Hct 45.5 (42.0-52.0) % MCV 86.0 (80-90) FL MCH 30.6 (27-31) PG MCHC 35.6 (33-37) g/dL RDW Std Deviation 47.8 (39-50) fL RDW Coeff of Liya 15.5 H (11.5-14.5) % Plt Count 408 H (140-350) 10*3/uL MPV 9.0 (7.4-12.2) FL Immature Gran % (Auto) 1.1 (0-5) % Neut % (Auto) 77.0 (50-80) % Lymph % (Auto) 15.6 (10-50) % Potter % (Auto) 5.9 (5-15) % Eos % (Auto) 0.2 (0-8) % Baso % (Auto) 0.2 (0-1) % Immature Gran # (Auto) 0.23 10*3/UL Neut # (Auto) 15.93 10*3/UL Lymph # (Auto) 3.23 10*3/uL Potter # (Auto) 1.22 H (0.3-0.8) 10*3/UL Eos # (Auto) 0.05 10*3/UL Baso # (Auto) 0.05 10*3/UL WBC Morphology Comment Normal morphology (NORM) Plt Morphology Comment Normal morphology (NORM) RBC Morph Comment Normal morphology (NORM) D-Dimer 0.24 (0.00-0.59) mg/L Sodium 135 (135-145) meq/L Potassium 4.0 (3.8-5.2) meq/L Chloride 98 (98-112) meq/L Carbon Dioxide 25 (23-33) meq/L Anion Gap 12 (5-20) BUN 23 H (7-22) mg/dL Creatinine 0.9 (0.70-1.50) mg/dL Estimated GFR > 60 (>60 ml/min/1.73m(2)) BUN/Creatinine Ratio 25.55 H (6-20) Glucose 92 (78-110) mg/dL Calculated Osmolality 283.0 (267-292) mOsm/kg Calcium 9.3 (8.7-10.7) mg/dL Magnesium 2.0 (1.6-2.4) mg/dL Total Bilirubin 0.6 (0.3-1.2) mg/dL AST 38 (21-57) IU/L ALT 59 (21-72) IU/L Alkaline Phosphatase 86 (38-126) IU/L Troponin I < 0.012 (< 0.040) ng/mL Total Protein 6.8 (6.1-8.0) g/dL Albumin 3.8 (3.5-4.8) g/dL Globulin 3.0 (2.50-4.10) g/dL Albumin/Globulin Ratio 1.20 L (1.3-2.0) mg/g TSH 4.32 H (0.2700-4.2000) uIU/mL Free T4 0.96 (0.93-1.71) ng/dL - Patient's Progress MDM / ED Course: Patient was evaluated, an IV was started, blood drawn and sent to the lab for studies, radiographic studies were reviewed. Findings: D-dimer is normal, CBC shows a white count of 20.5 down from 22.5 a week ago. Comprehensive metabolic panel is unremarkable, CT scan chest abdomen and pelvis shows extensive metastatic disease that is worsened since prior exam. Assessment: Hypertension, possibly related to anxiety, more likely related to metastatic disease process. Plan: Discharge home, follow-up with Dr. Bailon with oncology in [facility]. Did discuss Mr. Whitley with Dr. Erin Maria the on-call oncologist. Patient will receive a prescription for Valium, 5 mg by mouth twice a day, and to continue Ativan as needed. Dr. Bailon's office was contacted and appointment made. - Consult Counseled: POSITIVE: Patient, Family, RE: Lab Results, RE: Radiology Results, RE : DX, RE: Need for F/U Patient Care Time - Estimated PCT Patient Care Time (In Minutes): 45 Vital Signs - Recent Vital Signs Vital Signs: Vital Signs (Last 8 hours) Temp Pulse Resp BP Pulse Ox 12/03/16 11:10 96.9 F 116 H 20 145/95 90 - VS Reviewed Vital Signs Reviewed: Yes Discharge Clinical Impression: Diastolic blood pressure 90 mm Hg or higher Discharge Disposition: Discharged to Home Condition: Stable Patient Instructions Given at Discharge: Hypertension (ED)
[2016-12-03 12:41] LABS: BASOPHILS # (AUTO) 0.05 10*3/UL; BASOPHILS % (AUTO) 0.2 % (0-1); EOSINOPHILS # (AUTO) 0.05 10*3/UL; EOSINOPHILS % (AUTO) 0.2 % (0-8); HEMATOCRIT 45.5 % (42.0-52.0); HEMOGLOBIN 16.2 g/dL (14.0-18.0); LYMPHOCYTES # (AUTO) 3.23 10*3/uL; MEAN CORPUSCULAR HEMOGLOBIN 30.6 PG (27-31); MEAN CORPUSCULAR HGB CONC 35.6 g/dL (33-37); MONOCYTES # (AUTO) 1.22 10*3/UL (0.3-0.8); MONOCYTES % (AUTO) 5.9 % (5-15); NEUTROPHILS # (AUTO) 15.93 10*3/UL; RED BLOOD COUNT 5.29 10^6/uL (4.70-6.10)
[2016-12-03 12:46] LABS: PLATELET MORPHOLOGY COMMENT NORMAL MORPHOLOGY (NORM); RBC MORPHOLOGY COMMENT NORMAL MORPHOLOGY (NORM); WBC MORPHOLOGY COMMENT NORMAL MORPHOLOGY (NORM)
[2016-12-03 12:47] LABS: BLOOD UREA NITROGEN 23 mg/dL (7-22); BUN/CREATININE RATIO 25.55 (6-20); CALCIUM 9.3 mg/dL (8.7-10.7); EST GLOMERULAR FILTRATION > 60 (>60 ml/min/1.73m(2)); SERUM ALBUMIN 3.8 g/dL (3.5-4.8)
[2016-12-03 13:04] VITALS: RESP 20; TEMP 96.9
[2016-12-03 13:12] LABS: FREE T4 (FREE THYROXINE) 0.96 ng/dL (0.93-1.71)
[2016-12-03] MEDS ORDERED: DIAZEPAM 5 MG TABLET PO ONE (13:54)
== END 2016-12-03 14:30 | disposition home or self-care (01) ==
LOC: ER 11:10
DX: I10 Essential (primary) hypertension (principal); R06.02 Shortness of breath; R05 Cough
CPT/HCPCS: 80053; 83735; 84439; 84443; 84484; 85025; 85379; 99282; J7030

== ENCOUNTER → 2016-12-03 | Outpatient (CLI) | payer BC ==
--- NOTE | 2016-12-03 10:42 | DI ---
CT CHEST W/CONTRAST,12/03/2016 7:00 AM: Clinical History: Malignant melanoma. Previous Exam: August 09, 2016 Findings: Multiple helically acquired CT images are obtained through the chest following the intravenous admini stration of contrast. There is no evidence of pulmonary embolism. There are multiple pulmonary masses which are too numerous to count. These have significantly increased in size since the prior exam. The skeletal structures are unremarkable. The aorta is unremarkable. Impression: 1. Diffuse metastatic disease significantly worsened since the prior exam. 2. No evidence of pulmonary embolism.
--- NOTE | 2016-12-03 11:16 | DI ---
CT ABD W/CN AND PELVIS W/CN,12/03/2016 7:00 AM: Clinical History: Malignant melanoma. Previous Exam: August 09, 2016 Findings: Multiple helically acquired CT images are obtained through the abdomen and pelvis following the intra venous administration and oral administration of contrast, and demonstrate several renal hypodensitie s which are too small to characterize. There is a 5 mm renal parenchymal stone within the inferior pole of the left kidney. There are bilateral adrenal masses noted which were not prior exam. There are hyperdensities noted within the right anterior subcutaneous fat measuring 14 mm. This is en larged when compared with the prior exam. There is also a mass within the anterior mesentery at this same level in the right worrisome for metastatic disease. The appendix is unremarkable. The urinary bladder is also unremarkable. There is a small hypodensity within the pancreatic head measuring 19 mm in diameter. The liver appears grossly normal. The spleen is unremarkable. The stomach is not well evaluated as it is decompressed. The urinary bladder is unremarkable. Skeletal structures unremarkable and unchanged from the prior exam. Postsurgical changes of the lower lumbar spine are seen. Impression: 1. Enlarging masses within the adrenal glands bilaterally most consistent with metastatic disease. 2. New 19 mm hypodense mass within the head of the pancreas may also represent a metastatic focus. 3. Enlargement of a dense mass within the subcutaneous fat of the anterior abdomen in the epigastric region now measuring 14 mm. 4. New hyperdense mass within the anterior mesenteric fat within the right anterior abdomen.
== END ==
LOC: CT 06:53
PROVIDERS: ATTEND Nurse Practitioner Family
DX: C43.9 Malignant melanoma of skin, unspecified (principal)
CPT/HCPCS: 71260; 74177

== ENCOUNTER 2017-03-02 09:42 | Inpatient (IN) | payer BC ==
--- NOTE | 2017-03-02 10:09 | PDOC ---
General Adult HPI - General Date Seen by Provider: 03/02/17 Time Seen by Provider: 10:03 Source: POSITIVE: Patient Exam Limitations: POSITIVE: No limitations Nurse's Notes Reviewed & Considered: Yes - History of Present Illness Have you received a tetanus shot in the past 10 years?: Yes <ERIK LE - Last Filed: 03/02/17 10:03> - General Date Seen by Provider: 03/02/17 Time Seen by Provider: 10:00 Source: POSITIVE: Patient Exam Limitations: POSITIVE: No limitations Nurse's Notes Reviewed & Considered: Yes <Christian Childress - Last Filed: 03/02/17 11:54> - General Chief Complaint: General Medical Stated Complaint: PAIN - History of Present Illness Initial Comment: This is a 36-year-old male who presents to the emergency room with a history of metastatic melanoma. He is currently on chemotherapy and has been having worsening pain for the past few days. He is afraid to overdose on his narcotic pain medications, so he is only taken 5 mg of oxycodone 5 mg of tramadol so far today. He has no fevers, chills, or body aches. The patient is primarily in his abdomen. No nausea or vomiting, is having normal bowel movements. The patient is here for pain control. (ERIK LE) - Patient Home Medications Home Medications: Home Medications Proair Hfa 2 puff INH Q4-6H PRN inhaler 09/11/12 Levothyroxine Sodium 137 mcg PO DAILY 08/09/16 Tramadol HCl 50 mg PO Q6H PRN 08/09/16 Cholecalciferol [Vitamin D] 5,000 unit PO DAILY 09/27/16 LORazepam Tab [Ativan Tab] 1 mg PO Q6H PRN 09/27/16 Prednisone 80 mg PO DAILY 09/27/16 Albuterol/Ipratrop Neb Soln [Duoneb Neb Soln] 3 ml NEB Q6H 12/03/16 Mekkinst 1 tab PO BEDTIME 12/03/16 Ubidecarenone [Co Q-10] 100 mg PO DAILY 12/03/16 Diazepam [Valium] 5 mg PO BID PRN 03/02/17 Oxycodone HCl 5 mg PO Q6H PRN 03/02/17 - Patient Allergies Allergies/Adverse Reactions: Allergies Allergy/AdvReac Type Severity Reaction Status Date / Time NARCOTOCS AdvReac Intermediate SENSITIVITY Uncoded 03/02/17 11:01 AND OCC AGITATION Past Medical History - heen HEENT History: Hard of Hearing, Other (please comment) 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 Cardiovascular History: Denies History Respiratory History: Denies History Additional Respiratory History: MELANOMA CANCER WITH METS TO LUNG Gastrointestinal History: Denies History Genitourinary History: Denies History Endocrine History: Denies History Musculoskeletal History: Back Injury Prosthesis or Implant: Yes (VERTBRAL FUSION L5-S1) Neurological History: Motion Sickness Blood Disorders: Denies History Psychiatric History: Denies History History of Sexually Transmitted Diseases: No History of MDRO: No History of Other Communicable Diseases: No Alcohol Use: Occasionally Substance Use Type: None Previous Surgical History: Yes Type / Date of Surgery: 2000 AND 2002 NECK EDISSECTION WITH EXCISION OF LYMPH NODES/LEFT EYE REMOVED DUE TO CA/ PERIRECTAL ABCESS/ SKIN CA / L5-S1 FUSION Anesthesia Reactions: Yes (SEVERE NAUSEA WITH NARCOTICS) Malignant Hyperthermia: No Significant Family History: No pertinent family hx Past Medical History Reviewed: Reviewed - No Changes <ERIK LE - Last Filed: 03/02/17 10:03> ROS - Limitations ROS Limitations: No Limitations <ERIK LE - Last Filed: 03/02/17 10:03> General Adult Progress <ERIK LE - Last Filed: 03/02/17 10:03> - Patient's Progress Pain Medication Addressed: POSITIVE: Yes Re-Examine Time: 11:43 Re-Examine Comment: Much better after 4 mg of morphine and a milligram of Dilaudid. Status: POSITIVE: Improved - Consult Counseled: POSITIVE: Patient, Family, RE: Need for F/U <Christian Childress - Last Filed: 03/02/17 11:54> - Patient's Progress MDM / ED Course: Emergency room course: After initial evaluation, an IV was started. He was given 4 mg of morphine and subsequently 1 mg of Dilaudid IV. After the milligram of Dilaudid, the patient's pain was markedly improved, and he is ready to be discharged home. Please note that the initial history and physical as well as the review systems in review of his past medical history was all done by me, not Dr. Le. I accidentally dictated the first part of the chart on his sign on. I did discuss with the patient the fact that he needs to follow-up with his primary provider for further pain management. We'll discharge with prescriptions for Dilaudid as well as Protonix. (Christian Childress) Patient Care Time - Estimated PCT Patient Care Time (In Minutes): 15 <Christian Childress - Last Filed: 03/02/17 11:54> - Recent Vital Signs Vital Signs: Vital Signs (Last 8 hours) Temp Pulse Resp BP Pulse Ox 03/02/17 09:48 96.8 F 88 18 149/112 91 Discharge <ERIK LE - Last Filed: 03/02/17 10:03> Discharge Disposition: Discharged to Home <Christian Childress - Last Filed: 03/02/17 11:54> Clinical Impression: Chronic pain due to neoplasm Condition: Stable Patient Instructions Given at Discharge: Chronic Abdominal Pain (ED)
[2017-03-02] MEDS ORDERED: ONDANSETRON 4 MG/2 ML VIAL IVP ONE ×2 (10:17→21:37)
[2017-03-02] MEDS ORDERED: DEXAMETHASONE PF 10 MG/1 ML VIAL IVP ONE (10:18)
[2017-03-02] MEDS ORDERED: MORPHINE SULFATE 4 MG/1 ML IVP ONE (10:18)
[2017-03-02] MEDS ORDERED: MORPHINE SULFATE 4 MG/1 ML ONE (10:21)
[2017-03-02] MEDS ORDERED: Sodium Chloride 0.9% 1,000 ML ONE (10:21)
[2017-03-02] MEDS ORDERED: HYDROmorphone 2 MG/1 ML IVP ONE (11:00)
[2017-03-02] MEDS ORDERED: SIME PO ONE ×2 (11:04)
[2017-03-02] MEDS ORDERED: [UNRECOGNIZED DRUG - OTHER] PO ONE ×2 (11:04)
[2017-03-02] MEDS ORDERED: LIDOCAINE VISCOUS 2% PO ONE ×2 (11:04)
[2017-03-02] MEDS ORDERED: Pantoprazole Inj 40 MG in Normal Saline Flush 10 ML IVP ONE (11:04)
[2017-03-02] MEDS ORDERED: Sodium Chloride 0.9% 1,000 ML PRIMARY IV ONE ×2 (11:19→21:40)
[2017-03-02] MEDS ORDERED: NORMAL SALINE 10 ML SYRINGE FLUSH IVP PRN (11:26)
[2017-03-02] MEDS ORDERED: HEPARIN 500 UNIT/5 ML SYRINGE FOR CENTRAL LINE IVP ONE ×2 (11:26→23:58)
[2017-03-02] MEDS ORDERED: Famotidine Inj 20 MG in Normal Saline Flush 10 ML IVP ONE (21:37)
[2017-03-02] MEDS ORDERED: FAMOTIDINE 20 MG/2 ML VIAL IVP ONE (21:54)
[2017-03-02] MEDS ORDERED: HYDROmorphone 2 MG/1 ML ONE ×2 (21:54→23:58)
[2017-03-02] MEDS ORDERED: ONDANSETRON 4 MG/2 ML VIAL ONE (21:54)
[2017-03-02] MEDS: HYDROmorphone 2 MG/1 ML IVP ONE (22:10)
[2017-03-02 22:18] LABS: BLOOD UREA NITROGEN 25 mg/dL (7-22); BUN/CREATININE RATIO 31.25 (6-20); CALCIUM 8.7 mg/dL (8.7-10.7); EST GLOMERULAR FILTRATION > 60 (>60 ml/min/1.73m(2)); SERUM ALBUMIN 3.4 g/dL (3.5-4.8)
[2017-03-02 22:20] LABS: HEMATOCRIT 41.3 % (42.0-52.0); HEMOGLOBIN 13.9 g/dL (14.0-18.0); MEAN CORPUSCULAR VOLUME 98.1 FL (80-90); RED BLOOD COUNT 4.21 10^6/uL (4.70-6.10)
[2017-03-02 22:21] LABS: BASOPHILS # (AUTO) 0.05 10*3/UL; BASOPHILS % (AUTO) 0.2 % (0-1); EOSINOPHILS # (AUTO) 0 10*3/UL; EOSINOPHILS % (AUTO) 0 % (0-8); LYMPHOCYTES # (AUTO) 1.88 10*3/uL; MEAN CORPUSCULAR HGB CONC 33.7 g/dL (33-37); MONOCYTES # (AUTO) 1.31 10*3/UL (0.3-0.8); MONOCYTES % (AUTO) 5.9 % (5-15); NEUTROPHILS # (AUTO) 18.99 10*3/UL; NEUTROPHILS % (AUTO) 84.9 % (50-80); PLATELET MORPHOLOGY COMMENT NORMAL MORPHOLOGY (NORM); RBC MORPHOLOGY COMMENT NORMAL MORPHOLOGY (NORM); WBC MORPHOLOGY COMMENT NORMAL MORPHOLOGY (NORM)
[2017-03-02 22:27] LABS: LIPASE 1786 IU/L (23-300)
[2017-03-03] MEDS ORDERED: HEPARIN 500 UNIT/5 ML SYRINGE FOR CENTRAL LINE IVP ONE (00:06)
[2017-03-03] MEDS: HYDROmorphone 2 MG/1 ML IVP ONE (00:10)
[2017-03-03] MEDS ORDERED: LIDOCAINE W/ SODIUM BICARB 0.5 ML SYR SUBD PRN (01:36)
[2017-03-03] MEDS ORDERED: NORMAL SALINE 10 ML SYRINGE FLUSH IVP PRN (01:36)
[2017-03-03] MEDS ORDERED: oxyCODONE IR Tab 5 MG TAB PO PRN (01:36)
[2017-03-03] MEDS ORDERED: LORazepam 1 MG TABLET PO PRN (01:36)
[2017-03-03] MEDS ORDERED: DIAZEPAM 5 MG TABLET PO PRN (01:36)
[2017-03-03] MEDS ORDERED: HYDROmorphone 2 MG TABLET PO PRN (01:36)
[2017-03-03] MEDS ORDERED: traMADol 50 MG TABLET PO PRN (01:36)
[2017-03-03] MEDS ORDERED: Prochlorperazine Edisylate Inj 10mg/2ml vial IVP PRN (01:52)
[2017-03-03] MEDS ORDERED: ONDANSETRON 4 MG/2 ML VIAL ONE (01:54)
[2017-03-03] MEDS: ONDANSETRON 4 MG/2 ML VIAL IVP PRN ×4 (02:00→14:30)
[2017-03-03] MEDS: HYDROmorphone 2 MG/1 ML IVP PRN ×6 (02:08→13:31)
[2017-03-03] MEDS: Sodium Chloride 0.9% 1,000 ML PRIMARY IV SCH ×2 (02:10→10:03)
[2017-03-03] MEDS: IPRATROPIUM/ALBUTEROL SULFATE 3 ML NEB NEB SCH ×3 (02:21→13:53)
[2017-03-03] MEDS ORDERED: ALBUTEROL SULFATE 8.5 GM HFA INHALER INH PRN (03:00)
[2017-03-03] MEDS ORDERED: LEVOTHYROXINE 137 MCG TABLET PO SCH (05:30)
[2017-03-03] MEDS ORDERED: UBIDECARENONE 100 MG PO SCH (09:00)
[2017-03-03] MEDS ORDERED: predniSONE Tab 20 MG TAB PO SCH (09:00)
[2017-03-03] MEDS ORDERED: CHOLECALCIFEROL 1000 IU TABLET PO SCH (09:00)
[2017-03-03] MEDS ORDERED: MORPHINE SULFATE 10 MG/1 ML IV PRN (09:00)
[2017-03-03 09:05] VITALS: RESP 20
[2017-03-03] MEDS ORDERED: methylPREDNISolone 125 MG/2 ML VIAL IV SCH (09:15)
--- NOTE | 2017-03-03 13:11 | DCSUMMARY ---
Hospitalization Summary Admit Date: 03/03/17 Discharge Date: 03/03/17 Primary Diagnosis:: metastatic melanoma/pancreatitis Hospital Course: Final Discharge Diagnosis: Current Visit Problems Problem Status Priority Diagnosed Code Chronic pain due to neoplasm Acute G89.3 Metastatic melanoma, acute pancreatitis Diagnostic Data, Laboratory Data, and Procedures of Signifigance: Laboratory Results 03/02/17 Range/Units 21:45 WBC 22.37 H (4.8-10.8) 10^3/uL RBC 4.21 L (4.70-6.10) 10^6/uL Hgb 13.9 L (14.0-18.0) g/dL Hct 41.3 L (42.0-52.0) % MCV 98.1 H (80-90) FL MCH 33.0 H (27-31) PG MCHC 33.7 (33-37) g/dL RDW Std Deviation 46.8 (39-50) fL RDW Coeff of Liya 13.3 (11.5-14.5) % Plt Count 557 H (140-350) 10*3/uL MPV 9.0 (7.4-12.2) FL Immature Gran % (Auto) 0.6 (0-5) % Neut % (Auto) 84.9 H (50-80) % Lymph % (Auto) 8.4 L (10-50) % Trigg % (Auto) 5.9 (5-15) % Eos % (Auto) 0 (0-8) % Baso % (Auto) 0.2 (0-1) % Immature Gran # (Auto) 0.14 10*3/UL Neut # (Auto) 18.99 10*3/UL Lymph # (Auto) 1.88 10*3/uL Trigg # (Auto) 1.31 H (0.3-0.8) 10*3/UL Eos # (Auto) 0 10*3/UL Baso # (Auto) 0.05 10*3/UL WBC Morphology Comment Normal morphology (NORM) Plt Morphology Comment Normal morphology (NORM) RBC Morph Comment Normal morphology (NORM) Sodium 130 L (135-145) meq/L Potassium 4.7 (3.8-5.2) meq/L Chloride 93 L (98-112) meq/L Carbon Dioxide 28 (23-33) meq/L Anion Gap 9 (5-20) BUN 25 H (7-22) mg/dL Creatinine 0.8 (0.70-1.50) mg/dL Estimated GFR > 60 (>60 ml/min/1.73m(2)) BUN/Creatinine Ratio 31.25 H (6-20) Glucose 105 (78-110) mg/dL Calculated Osmolality 273.0 (267-292) mOsm/kg Calcium 8.7 (8.7-10.7) mg/dL Total Bilirubin 0.7 (0.3-1.2) mg/dL AST 141 H (21-57) IU/L ALT 116 H (21-72) IU/L Alkaline Phosphatase 321 H (38-126) IU/L Total Protein 6.2 (6.1-8.0) g/dL Albumin 3.4 L (3.5-4.8) g/dL Globulin 2.8 (2.50-4.10) g/dL Albumin/Globulin Ratio 1.20 L (1.3-2.0) mg/g Lipase 1786 H* (23-300) IU/L Home Medications Medication Instructions Recorded Confirmed Type Proair Hfa 2 puff INH Q4-6H PRN inhaler 09/11/12 03/02/17 History Levothyroxine Sodium 137 mcg PO DAILY 08/09/16 03/02/17 History Tramadol HCl 50 mg PO Q6H PRN 08/09/16 03/02/17 History Cholecalciferol [Vitamin D] 5,000 unit PO DAILY 09/27/16 03/02/17 History LORazepam Tab [Ativan Tab] 1 mg PO Q6H PRN 09/27/16 03/02/17 History Prednisone 80 mg PO DAILY 09/27/16 03/02/17 History Albuterol/Ipratrop Neb Soln 3 ml NEB Q6H 12/03/16 03/02/17 History [Duoneb Neb Soln] Mekkinst 1 tab PO BEDTIME 12/03/16 03/02/17 History Ubidecarenone [Co Q-10] 100 mg PO DAILY 12/03/16 03/02/17 History Diazepam [Valium] 5 mg PO BID PRN 03/02/17 03/02/17 History Hydromorphone HCl [Dilaudid] 2 mg PO PRN PRN 03/02/17 03/02/17 History Oxycodone HCl 5 mg PO Q6H PRN 03/02/17 03/02/17 History History and Physical pertinent to Admission: Course of Hospitalization: Is a very nice 26-year-old gentleman who unfortunately has been dealing with metastatic melanoma for long time now. He has been followed by a [facility] at the melanoma clinic by Dr. Manny Hernandez. He comes in today because of excruciating abdominal pain nausea and vomiting. CT scan of the abdomen and pelvis revealed a worsening of his metastatic disease plus possible metastatic lesions to the head of the pancreas and also elevated lipase in the 1700 range and abdominal pain. Specifically is CAT scan of 12/03/2016 had revealed the metastases had worsened to his chest also adrenal glands had 1.6 cm masses and there was a 19 mm mass at the head of the pancreas and also abdominal wall masses at that time. New CT reveals a the adrenal masses of grown to 2 cm and also the liver is really been replaced with metastatic disease as well. I had a long discussion with the patient and presented all the facts to home at this point international units I did also speak to the oncologist on-call in [place] which should did not have anything to offer other than chemotherapy at this point and pain control. Also patient is very sensitive to narcotics and is only receiving 1 mg of dialogue it every 2 hours to control his pain which is unbearable at times. As per patient's request a total me to call the [facility] Dr. Fisher in the transfer center. His melanoma clinic doctor was not available but I did talk to GI therapeutic physician Dr. mckenzie who recommended transfer to [facility] for possible ERCP and endoscopic ultrasound to better look at the head of the pancreas. Also he would be in consultation with the melanoma clinic and oncology as well and also for his pain control which is pretty difficult considering his sensitivity to narcotics and metastatic disease to multiple places. He was accepted patient was very happy and comforted by this Mr. Whitley requested to be flown to [place] and has instructed by him and his family I called the [facility] and they are arranging this via fixed wing discuss this also with nursing and family members on agreement. On the date of discharge, the patient was examined: Gen.: [No acute distress, alert, nontoxic] Heart: [Regular rate and rhythm, no murmurs, clicks, gallops, or rubs] Lungs: [Clear to auscultation bilaterally, breathing is nonlabored] Abdomen/GI: [Normal tones on auscultation, left lower quadrant pain Musculoskeletal/extremities: [No clubbing, cyanosis, or edema] Vitals reviewed and are listed below Vital Signs (24 hrs) Temp Pulse Pulse Pulse Resp BP BP 03/03/17 09:00 98 F 97 20 03/03/17 07:00 79 16 03/03/17 05:44 03/03/17 04:54 96.9 F 80 16 03/03/17 01:58 97.3 F 70 20 03/03/17 01:43 70 20 03/03/17 01:35 96.8 F 66 20 144/97 03/02/17 21:30 97.7 F 101 H 22 141/122 BP Pulse Ox 03/03/17 09:00 144/108 93 03/03/17 07:00 03/03/17 05:44 92 03/03/17 04:54 133/89 92 03/03/17 01:58 160/113 92 03/03/17 01:43 03/03/17 01:35 93 03/02/17 21:30 93 Assessment and Plan: 1. As per discharge assessments above 2. Disposition: Transferred to [facility] 3. Condition on discharge, stable and improved. 4. Diet: regular diet 5. Activities: resume normal activities 6. Follow-Up: 1. [PCP] 2. 7. Medications at the Time of Discharge: 8. Time, care, counseling and coordination of care for this discharge is greater than 30 minutes. This was inadequate and transfer same day Exam - Vitals Vital Signs: Vital Signs Temperature 98 F Temperature Source Temporal Artery Scan Pulse Rate [Left Apical] 79 Pulse Rate [Pulse Oximeter] 97 Pulse Rate 66 Respiratory Rate 20 Blood Pressure [Right Arm] 144/108 Blood Pressure 144/97 Pulse Ox 93 Oxygen Flow Rate 3 Oxygen Delivery Method Nasal Cannula Height 6 ft Weight 93.984 kg
--- NOTE | 2017-03-03 13:12 | PDOC ---
History and Physical - History of Present Illness History of Present Illness: Please see discharge summary same-day admit and transfer to [facility] Past Medical History Tobacco Use: Never Smoker Substance Use Type: None Medication / Allergies Home Medications: Home Medications Medication Instructions Recorded Confirmed Type Proair Hfa 2 puff INH Q4-6H PRN inhaler 09/11/12 03/02/17 History Levothyroxine Sodium 137 mcg PO DAILY 08/09/16 03/02/17 History Tramadol HCl 50 mg PO Q6H PRN 08/09/16 03/02/17 History Cholecalciferol [Vitamin D] 5,000 unit PO DAILY 09/27/16 03/02/17 History LORazepam Tab [Ativan Tab] 1 mg PO Q6H PRN 09/27/16 03/02/17 History Prednisone 80 mg PO DAILY 09/27/16 03/02/17 History Albuterol/Ipratrop Neb Soln 3 ml NEB Q6H 12/03/16 03/02/17 History [Duoneb Neb Soln] Mekkinst 1 tab PO BEDTIME 12/03/16 03/02/17 History Ubidecarenone [Co Q-10] 100 mg PO DAILY 12/03/16 03/02/17 History Diazepam [Valium] 5 mg PO BID PRN 03/02/17 03/02/17 History Hydromorphone HCl [Dilaudid] 2 mg PO PRN PRN 03/02/17 03/02/17 History Oxycodone HCl 5 mg PO Q6H PRN 03/02/17 03/02/17 History Allergies/Adverse Reactions: Allergies Allergy/AdvReac Type Severity Reaction Status Date / Time NARCOTOCS AdvReac Intermediate SENSITIVITY Uncoded 03/03/17 07:21 AND OCC AGITATION Exam - Vitals Vital Signs: Vital Signs Temperature 98 F Temperature Source Temporal Artery Scan Pulse Rate [Left Apical] 79 Pulse Rate [Pulse Oximeter] 97 Pulse Rate 66 Respiratory Rate 20 Blood Pressure [Right Arm] 144/108 Blood Pressure 144/97 Pulse Ox 93 Oxygen Flow Rate 3 Oxygen Delivery Method Nasal Cannula Height 6 ft Weight 93.984 kg Results - Labs CBC and BMP: 03/02/17 21:45 03/02/17 21:45
[2017-03-03 13:22] VITALS: TEMP 97.2
[2017-03-03] MEDS ORDERED: TRAMETINIB PO SCH (21:00)
--- NOTE | 2017-03-05 09:43 | DI ---
HISTORY: Abdominal pain. Malignant melanoma. COMPARISON: 12/03/2016. TECHNIQUE: CT of the abdomen and pelvis was performed and the images were submitted for interpretati on. FINDINGS: Innumerable pulmonary metastases have progressed since 12/03/2016. The liver is now nearly replaced with innumerable metastases. The gallbladder is grossly unremarkabl e. There is no evidence of biliary ductal dilatation. The spleen is grossly unremarkable. Indistin ctness of the pancreatic head and body with peripancreatic fat infiltration reflect an inflammatory p rocess or be related to underlying extensive metastatic disease. Multiple low attenuating lesions ar e scattered throughout both kidneys, which are too small to definitively characterize. There is no h ydronephrosis in either kidney. A 2 cm left adrenal nodule has increased in size since 12/03/2016 wh en it measured 1.6 cm and likely reflects metastasis. A subcentimeter right adrenal nodule is stabl e in size, though too small to definitively characterize. The unopacified small and large bowel is within normal limits for caliber. The appendix is unremarka ble. There is no evidence of bowel obstruction. There is no pneumoperitoneum. Multiple intra-abdominal lymph nodes have increased in size. For reference, there is a 17 mm short a xis lymph node along the medial margin of the inferior lobe of the liver (series 2, image 83), has in creased in size from 12/03/2016 when it measured 2 mm. A 12 mm right superficial abdominal wall mass is grossly stable in appearance and could reflect metastasis. Posterior L5-S1 fusion hardware is noted and appears grossly intact. No acute skeletal pathology is seen, noting several small hypodensities scattered about the iliac bones, which remain nonspecific in a setting of diffuse metastatic disease. IMPRESSION: 1. Markedly progressed metastatic disease as described. 2. Peripancreatic inflammation could reflect pancreatitis and/or be related to extensive metastatic d isease. These findings can be correlated with lab values.
== END 2017-03-03 14:45 | disposition short-term general hospital (02) | DRG 439 ==
LOC: ER 09:42 → MED/SURG 03-03 01:27
PROVIDERS: ADMIT Family Medicine; ATTEND Family Medicine
DX: K85.90 Acute pancreatitis without necrosis or infection, unspecified (principal); C78.89 Secondary malignant neoplasm of other digestive organs; C43.9 Malignant melanoma of skin, unspecified
CPT/HCPCS: 74177; 80053; 83690; 85025; 87040; 94761; 96374; 96375; 96376; 99284; 99285; J1100; J1170; J2270; J2405; J3490; J7030; J7620

== ENCOUNTER 2017-03-27 04:38 | Emergency (ER) | payer BC ==
[2017-03-27] MEDS ORDERED: ONDANSETRON 4 MG/2 ML VIAL IVP ONE (04:50)
[2017-03-27] MEDS ORDERED: HYDROmorphone 2 MG/1 ML IVP ONE ×2 (04:50→05:44)
[2017-03-27] MEDS ORDERED: NORMAL SALINE 10 ML SYRINGE FLUSH IVP PRN (04:51)
[2017-03-27] MEDS ORDERED: HYDROmorphone 2 MG/1 ML ONE (04:53)
[2017-03-27] MEDS ORDERED: LORazepam 2 MG/1 ML VIAL IVP ONE (04:59)
[2017-03-27] MEDS ORDERED: LACTATED RINGERS 1000 ML PRIMARY IV SCH (05:00)
[2017-03-27] MEDS ORDERED: LORazepam 2 MG/1 ML VIAL ONE (05:01)
[2017-03-27 05:22] VITALS: RESP 24; TEMP 97.3
--- NOTE | 2017-03-27 08:54 | PDOC ---
General Adult HPI - General Chief Complaint: General Medical Stated Complaint: INCREASED PAIN, NAUSEA, WEAKNESS Date Seen by Provider: 03/27/17 Time Seen by Provider: 04:40 - History of Present Illness Initial Comment: This patient is a very nice 36-year-old gentleman who presents to the emergency department with severe malignant pain. Sadly he has metastatic melanoma metastatic to multiple places especially his chest causing severe in substantial pain there. He also has chronic hypoxia secondary to his cancer as well. He had been trying to find a pain management regimen that would work for him and had recently been on some fentanyl patches but about 2-3 days ago he removed his fentanyl patches because he was feeling too "dissociative" he states that he is feeling very loopy and he knows it on this medication he doesn 't want take fentanyl anymore. He was going to try to get by with taking some Ultram that that was not significant enough pain coverage for him and he is now suffering from nausea vomiting and severe pain. Have you received a tetanus shot in the past 10 years?: Yes - Patient Home Medications Home Medications: Home Medications Proair Hfa 2 puff INH Q4-6H PRN inhaler 09/11/12 Levothyroxine Sodium 137 mcg PO DAILY 08/09/16 Tramadol HCl 50 mg PO Q6H PRN 08/09/16 Cholecalciferol [Vitamin D] 5,000 unit PO DAILY 09/27/16 LORazepam Tab [Ativan Tab] 1 mg PO Q6H PRN 09/27/16 Prednisone 80 mg PO DAILY 09/27/16 Albuterol/Ipratrop Neb Soln [Duoneb Neb Soln] 3 ml NEB Q6H 12/03/16 Mekkinst 1 tab PO BEDTIME 12/03/16 Ubidecarenone [Co Q-10] 100 mg PO DAILY 12/03/16 Diazepam [Valium] 5 mg PO BID PRN 03/02/17 Hydromorphone HCl [Dilaudid] 2 mg PO PRN PRN 03/02/17 Oxycodone HCl 5 mg PO Q6H PRN 03/02/17 - Patient Allergies Allergies/Adverse Reactions: Allergies Allergy/AdvReac Type Severity Reaction Status Date / Time NARCOTOCS AdvReac Intermediate SENSITIVITY Uncoded 03/03/17 07:21 AND OCC AGITATION Past Medical History - heen HEENT History: Hard of Hearing, Other (please comment) 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 Cardiovascular History: Denies History Respiratory History: Denies History Additional Respiratory History: MELANOMA CANCER WITH METS TO LUNG Gastrointestinal History: Denies History Genitourinary History: Denies History Endocrine History: Denies History Musculoskeletal History: Back Injury Prosthesis or Implant: Yes (VERTBRAL FUSION L5-S1) Neurological History: Motion Sickness Blood Disorders: Denies History Psychiatric History: Denies History History of Sexually Transmitted Diseases: No In Past Year Been Physically Harmed or Verbally Threatened: No History of MDRO: No History of Other Communicable Diseases: No Tobacco Use: Never Smoker Alcohol Use: None Substance Use Type: None Previous Surgical History: Yes Type / Date of Surgery: 2000 AND 2002 NECK EDISSECTION WITH EXCISION OF LYMPH NODES/LEFT EYE REMOVED DUE TO CA/ PERIRECTAL ABCESS/ SKIN CA / L5-S1 FUSION Anesthesia Reactions: Yes (SEVERE NAUSEA WITH NARCOTICS) Malignant Hyperthermia: No Significant Family History: No pertinent family hx Past Medical History Reviewed: Reviewed - No Changes ROS Constitution: REPORTS: Denies Symptoms Genitourinary: REPORTS: Denies Symptoms General Adult Exam - General Appearance General Appearance: POSITIVE: Alert, Other (Clearly having significant discomfort) - HEENT HEENT: POSITIVE: Other (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 otherwise HEENT exam shows dry mucous membranes.) - Neck Neck: POSITIVE: Normal Inspection - Respiratory Respiratory: POSITIVE: No Respiratory Distress, Rales - Cardiovascular Cardiovascular: POSITIVE: Regular Rate & Rhythm - Abdomen Abdomen: Soft: (All Quadrants), Normal Bowel Sounds: (All Quadrants) - Skin Skin: POSITIVE: Normal Color, Warm, Dry - Extremities Additional Extremities Details: He has 2+ bilateral pitting edema in his lower extremities up to about his knee - Neurological / Psychological Neurological: POSITIVE: Affect Apporpriate, Oriented X3 General Adult Progress - Patient's Progress MDM / ED Course: Patient was admitted to the emergency department an IV was placed he was given 4 mg of Zofran and 2 mg of IV Dilaudid in addition to 2 mg of IV Ativan. He actually obtained excellent relief from this combination he was able to sleep for couple hours and is currently telling me that he is pain-free. I've asked him if he feels that he could manage at home and if he can take oral medications this point he believes that he can. He does have both delighted and Ativan at home and available to him right now and we decided to try a regimen of Dilaudid 2 mg by mouth every 4 hours and Ativan 2 mg by mouth every 4 -6 hours to try to stay on top of his pain. Luckily he has an appointment with his pale he had to have career technical education teacher/pain medicine specialist in [place] tomorrow and hopefully he'll be able to make that appointment. His is discussing home health options with the home health team today. He is encouraged to return if his nausea vomiting return or if he is unable to control his pain in any way. Patient Care Time - Estimated PCT Patient Care Time (In Minutes): 40 Vital Signs - Recent Vital Signs Vital Signs: Vital Signs (Last 8 hours) Temp Pulse Resp BP Pulse Ox 03/27/17 04:40 97.3 F 90 24 139/106 93 - VS Reviewed Vital Signs Reviewed: Yes Discharge Clinical Impression: Cancer associated pain Discharge Disposition: Discharged to Home Condition: Good Additional Instructions: Take the a lot of 2 mg every 4 hours for pain. If this is not covering her pain adequately increased to 2 mg every 2 hours. If your becoming sedated decreased dosing to 2 mg every 6 hours. Take Ativan 2 mg every 4-6 hours as needed as well. Follow-up with your palliative care/paint mixer hand in [place] tomorrow as is arranged if it is possible for you to make it there. Take Zofran 4 mg oral dissolving tablet every 4 hours to 6 hours as needed for any nausea. Return with any further issues or problems. If you're unable to make it to your accounting support specialist please follow-up with Dr. Art as soon as possible. Follow Up With: NONE,NONE [Primary Care Provider] -
== END 2017-03-27 12:02 | disposition home or self-care (01) ==
LOC: ER 04:38
DX: G89.3 Neoplasm related pain (acute) (chronic) (principal); R11.2 Nausea with vomiting, unspecified
CPT/HCPCS: 96374; 96375; 96376; 99283 ×2; J1170; J2060; J2405; J7120

== ENCOUNTER 2017-03-29 12:18 | Inpatient (IN) ==
[2017-03-29] MEDS ORDERED: Sodium Chloride 0.9% 1,000 ML PRIMARY IV ONE (12:33)
[2017-03-29] MEDS ORDERED: ONDANSETRON 4 MG/2 ML VIAL IVP ONE (12:33)
[2017-03-29] MEDS ORDERED: NORMAL SALINE 10 ML SYRINGE FLUSH IVP PRN (12:33)
[2017-03-29] MEDS ORDERED: HYDROmorphone 2 MG/1 ML IVP ONE (12:34)
[2017-03-29] MEDS ORDERED: LORazepam 2 MG/1 ML VIAL IVP ONE (12:35)
[2017-03-29] MEDS ORDERED: Sodium Chloride 0.9% 1,000 ML ONE (12:38)
--- NOTE | 2017-03-29 13:02 | PDOC ---
General Adult HPI - General Chief Complaint: General Medical Stated Complaint: Figure out this pain control stuff Date Seen by Provider: 03/29/17 Time Seen by Provider: 12:30 Source: POSITIVE: Patient, Other (family) Exam Limitations: POSITIVE: No limitations Nurse's Notes Reviewed & Considered: Yes - History of Present Illness Initial Comment: The patient is a 36-year-old male who presents to the emergency department regarding pain management. The patient does have metastatic melanoma with metastases to his liver, pancreas, adrenal glands and lungs. He has been having ongoing issues with abdominal pain. He is fairly sensitive to narcotic pain medications and has been having a hard time finding a pain regimen that works for him. Recently he was tried on fentanyl patches however he became over sedated and confused. Without the fentanyl his pain became out of control and he was evaluated here in the emergency department within the last couple of days. He seems to do well with administration of IV Dilaudid and IV Ativan. He has been in the process of trying to get this arranged at home and he did see Dr. Art for pain management yesterday in the clinic. He was prescribed liquid morphine however the patient was reluctant to try this because of concern regarding respiratory suppression etc. He has been using oral Dilaudid and oral Ativan at home however this morning his pain is out of control again. He has not had any associated fever. He has not had any vomiting. He has been able to eat and drink. He has ongoing issues with swelling in his legs as well. Have you received a tetanus shot in the past 10 years?: Yes - Patient Home Medications Home Medications: Home Medications Proair Hfa 2 puff INH Q4-6H PRN inhaler 09/11/12 Tramadol HCl 50 mg PO Q6H PRN 08/09/16 Albuterol/Ipratrop Neb Soln [Duoneb Neb Soln] 3 ml NEB Q6H 12/03/16 Mekkinst 1 tab PO BEDTIME 12/03/16 Diazepam [Valium] 5 mg PO BID PRN 03/02/17 Hydromorphone HCl [Dilaudid] 2 mg PO PRN PRN 03/02/17 Oxycodone HCl 5 mg PO Q6H PRN 03/02/17 Cholecalciferol (Vitamin D3) [Vitamin D3] 5,000 unit PO QD cap 03/28/17 Dexamethasone 8 mg PO QD tab 03/28/17 Levothyroxine Sodium 1 tab PO DAILY #90 tab 03/28/17 Lorazepam 0.25 - 1 ml PO Q4-6H #60 ml 03/28/17 Lorazepam 1 mg PO Q6H PRN #60 03/28/17 Morphine Liquid [Msir Liquid] 0.1 - 1 ml PO Q1hour PRN #60 ml 03/28/17 Ondansetron [Zofran Odt] 8 mg PO PRN tab 03/28/17 Pantoprazole Sodium [Protonix] 1 tab PO DAILY tab 03/28/17 Spironolactone [Aldactone] 1 tab PO DAILY tab 03/28/17 - Patient Allergies Allergies/Adverse Reactions: Allergies Allergy/AdvReac Type Severity Reaction Status Date / Time NARCOTOCS AdvReac Intermediate SENSITIVITY Uncoded 03/29/17 12:25 AND OCC AGITATION Past Medical History - heen HEENT History: Hard of Hearing, Other (please comment) 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 Cardiovascular History: Denies History Respiratory History: Denies History Additional Respiratory History: MELANOMA CANCER WITH METS TO LUNG Gastrointestinal History: Denies History Genitourinary History: Denies History Endocrine History: Denies History Musculoskeletal History: Back Injury Prosthesis or Implant: Yes (VERTBRAL FUSION L5-S1) Neurological History: Motion Sickness Blood Disorders: Denies History Psychiatric History: Denies History History of Sexually Transmitted Diseases: No In Past Year Been Physically Harmed or Verbally Threatened: No History of MDRO: No History of Other Communicable Diseases: No Tobacco Use: Never Smoker Alcohol Use: None Substance Use Type: None Previous Surgical History: Yes Type / Date of Surgery: 2000 AND 2002 NECK EDISSECTION WITH EXCISION OF LYMPH NODES/LEFT EYE REMOVED DUE TO CA/ PERIRECTAL ABCESS/ SKIN CA / L5-S1 FUSION Anesthesia Reactions: Yes (SEVERE NAUSEA WITH NARCOTICS) Malignant Hyperthermia: No Significant Family History: No pertinent family hx Past Medical History Reviewed: Reviewed - No Changes ROS - Limitations ROS Limitations: No Limitations Constitution: DENIES: Chills, Fever Cardiovascular: DENIES: Chest Pain Respiratory: REPORTS: Shortness Of Breath (He is chronically on 2 L of oxygen per nasal cannula at home). DENIES: Cough Non Productive, Cough Productive Neurological: REPORTS: Confusion. DENIES: Headache, Numbness, Weakness Gastrointestinal: REPORTS: Abdominal Pain, Nausea. DENIES: Vomitting, Diarrhea , Black Stools, Bloody Stools Musculoskeletal: REPORTS: Denies MS Symptoms Eyes: REPORTS: Denies Symptoms ENT: REPORTS: Denies Symptoms General Adult Exam - General Appearance General Appearance: POSITIVE: Alert, Cooperative, No Acute Distress, Other (The patient does appear chronically ill) - HEENT HEENT: POSITIVE: Head Inspection Nml, Ears Inspection Nml, Pharynx Inspect. Nml , Other (The left eye has been removed previously, this was the original source of his melanoma) - Neck Neck: POSITIVE: Normal Inspection - Respiratory Respiratory: POSITIVE: Other (Decreased breath sounds bilaterally, respirations are unlabored) General Adult Progress - Patient's Progress MDM / ED Course: The patient's port was accessed and he received Dilaudid 1 mg IV as well as Ativan 1 mg IV. He reported that his pain level came down to a 5 out of 10 down from 8 out of 10. The patient has been having a hard time getting adequate pain control at home. Decision was made to admit the patient for further pain management. Dr. Martinez has agreed to admit the patient. - Consult Counseled: POSITIVE: Patient, Family, RE: Radiology Results, RE: DX Patient Care Time - Estimated PCT Patient Care Time (In Minutes): 30 Vital Signs - Recent Vital Signs Vital Signs: Vital Signs (Last 8 hours) Temp Pulse Resp BP Pulse Ox 03/29/17 12:27 97.5 F 102 H 16 125/110 91 - VS Reviewed Vital Signs Reviewed: Yes Discharge Clinical Impression: Metastatic malignant melanoma, Intractable pain Discharge Disposition: Admit to Inpatient Condition: Serious Date Decision to Admit to Inpatient: 03/29/17 Time Decision to Admit to Inpatient: 12:45
[2017-03-29 13:12] LABS: BASOPHILS # (AUTO) 0 10*3/UL; BASOPHILS % (AUTO) 0 % (0-1); EOSINOPHILS # (AUTO) 0 10*3/UL; EOSINOPHILS % (AUTO) 0 % (0-8); Hematocrit [HCT] 33.9 % (42.0-52.0); Hemoglobin [HGB] 11.5 g/dL (14.0-18.0); LYMPHOCYTES # (AUTO) 0.73 10*3/uL; MEAN CORPUSCULAR HEMOGLOBIN 33.4 PG (27-31); MEAN CORPUSCULAR HGB CONC 33.9 g/dL (33-37); MEAN CORPUSCULAR VOLUME 98.5 FL (80-90); MEAN PLATELET VOLUME 8.2 FL (7.4-12.2); MONOCYTES # (AUTO) 0.19 10*3/UL (0.3-0.8); MONOCYTES % (AUTO) 2.8 % (5-15); NEUTROPHILS # (AUTO) 5.74 10*3/UL; NEUTROPHILS % (AUTO) 86.2 % (50-80); RED BLOOD COUNT 3.44 10^6/uL (4.70-6.10)
[2017-03-29 13:23] LABS: BLOOD UREA NITROGEN 21 mg/dL (7-22); BUN/CREATININE RATIO 26.25 (6-20); MAGNESIUM 1.8 mg/dL (1.6-2.4); SERUM ALBUMIN 2.7 g/dL (3.5-4.8)
[2017-03-29 13:27] LABS: PLATELET MORPHOLOGY COMMENT NORMAL MORPHOLOGY (NORM); RBC MORPHOLOGY COMMENT NORMAL MORPHOLOGY (NORM); WBC MORPHOLOGY COMMENT NORMAL MORPHOLOGY (NORM)
--- NOTE | 2017-03-29 13:51 | DI ---
HISTORY: Port concern, located in upper right chest. History of metastatic cancer. COMPARISON: CT report 12/03/2016, CXR 08/09/2016. TECHNIQUE: A single portable AP view of the chest is submitted. FINDINGS: An accessed right chest Port-A-Cath is in place with the tip projecting over the distribut ion of the superior vena cava. Innumerable pulmonary nodules and masses are present. There is no pleural effusion or pneumothorax. The cardiomediastinal silhouette is within normal limits. Degenerative changes of the AC joints and spine are noted. IMPRESSION: 1. Right-sided chest port tip projects over the distribution of the superior vena cava. 2. Innumerable pulmonary nodules and masses. Dedicated advanced cross sectional imaging is recommende d if no priors are available for comparison.
[2017-03-29 13:55] LABS: LIPASE 932 IU/L (23-300)
[2017-03-29] MEDS ORDERED: LORazepam 1 MG TABLET PO PRN (15:15)
[2017-03-29] MEDS ORDERED: MORPHINE SULFATE 20 MG/1 ML ORAL SOLN PO PRN (15:15)
[2017-03-29] MEDS ORDERED: LORAZEPAM PO SCH (15:15)
[2017-03-29] MEDS ORDERED: LIDOCAINE W/ SODIUM BICARB 0.5 ML SYR SUBD PRN (15:15)
[2017-03-29] MEDS ORDERED: DIAZEPAM 5 MG TABLET PO PRN (15:15)
[2017-03-29] MEDS ORDERED: oxyCODONE IR Tab 5 MG TAB PO PRN (15:15)
[2017-03-29] MEDS ORDERED: Ondansetron ODT Tab 8 MG TAB PO SCH (15:15)
[2017-03-29] MEDS ORDERED: traMADol 50 MG TABLET PO PRN (15:15)
[2017-03-29] MEDS ORDERED: HYDROmorphone 2 MG TABLET PO PRN (15:15)
[2017-03-29] MEDS ORDERED: HYDROmorphone 2 MG/1 ML IVP PRN (15:27)
[2017-03-29] MEDS ORDERED: LORazepam 2 MG/1 ML VIAL IVP PRN (15:28)
[2017-03-29] MEDS ORDERED: HEPARIN 500 UNIT/5 ML SYRINGE FOR CENTRAL LINE IVP ONE (15:41)
[2017-03-29] MEDS ORDERED: ALBUTEROL SULFATE 8.5 GM HFA INHALER INH PRN (15:51)
[2017-03-29] MEDS: NORMAL SALINE 10 ML SYRINGE FLUSH IVP PRN ×2 (15:53→19:35)
[2017-03-29] MEDS ORDERED: DIAZEPAM 10 MG/2 ML (5 MG/1 ML) CARPUJECT IVP PRN (16:00)
[2017-03-29] MEDS: Ondansetron ODT Tab 8 MG TAB PO PRN (16:06)
[2017-03-29] MEDS: IPRATROPIUM/ALBUTEROL SULFATE 3 ML NEB NEB SCH ×2 (16:56→18:43)
--- NOTE | 2017-03-29 18:46 | PDOC ---
History and Physical - History of Present Illness Date and Time of Service: 03/29/2017, 1400 Chief Complaint: pain, generalized History of Present Illness: This is a very pleasant 36 YO male with malignant opthalmic melanoma with a sortid history of surgeries and chemotherapy, including experimental regimens managed at [facility] and [facility]. He also developed autoimmune hepatitis in August of this year. The patient presents with his and [id number] with complaints of worsening pain. The patient has not done well on oral pain medications with side effects of severe confusion. He has done okay with IV dilaudid and IV benzodiazepines and reached an agreement to manage this pain as an outpatient with his doctor, Dr. Art. The patient came in with worsening pain. He could not control it and after one dose of dilaudid in the ER, did feel somewhat better. His pain has otherwise been intractible, mainly in abdominal region. No nausea or vomiting reported. No consipation. He has not been able to tolerate oral pain medications at home. I did review his records from [facility], and they felt the patient had malignant melanoma and possible recurrence of autoimmune hepatitis, and placed the patient on a steroid taper. Liver enzymes have improved and so has lipase, but they are still elevated. No ammonia levels drawn to my knowledge. The patient and his family state he had T cells harvested for an experimental therapy at [facility] and a pain control consult. The patient and his family are interested in a hospice transitions program or a palliative care program, but are not interested in entering the hospice program directly at this time. We all discussed that the end goal of this hospital stay would be to find a way to get IV meds to the patient at home. He does have a port on the right side. No fevers and no chills. Has been losing weight, about 87 pounds this year. Past Medical History Medical History: 1. Malignant melanoma (opthalmic), s/p surgery and radiation therapy, on active chemotherapy, and experimental therapy. 2. Hypothyroidism. 3. Autoimmune hepatitis versus metastatic disease. 4. lung metastatic disease, on oxygen chronically, 2 LPM baseline Surgical History: 1. as mentioned, surgeries related to opthalmic melanoma, with resection of left eye. Other eye surgery 2008 (removal L. eye R/T cancer) . Other integumentary surg (Skin graft I&D Perirectal abcess). Skin Cancer Removal 2000. Vertebral Fusion 2003 (L5-S1) Pertinent Family History: father with history of stroke Past Social History: does not smoke or drink. . has two children. Tobacco Use: Never Smoker Do you dip or chew tobacco: Yes (1 can/2 weeks) Substance Use Type: None Alcohol Use: None Medication / Allergies Home Medications: Home Medications Medication Instructions Recorded Confirmed Type Proair Hfa 2 puff INH Q4-6H PRN inhaler 09/11/12 03/29/17 History Tramadol HCl 50 mg PO Q6H PRN 08/09/16 03/29/17 History Albuterol/Ipratrop Neb Soln 3 ml NEB Q6H 12/03/16 03/29/17 History [Duoneb Neb Soln] Mekkinst 1 tab PO BEDTIME 12/03/16 03/29/17 History Diazepam [Valium] 5 mg PO BID PRN 03/02/17 03/29/17 History Hydromorphone HCl [Dilaudid] 2 mg PO PRN PRN 03/02/17 03/29/17 History Oxycodone HCl 5 mg PO Q6H PRN 03/02/17 03/29/17 History Cholecalciferol (Vitamin D3) 5,000 unit PO QD cap 03/28/17 03/29/17 History [Vitamin D3] Dexamethasone 8 mg PO QD tab 03/28/17 03/29/17 History Levothyroxine Sodium 1 tab PO DAILY #90 tab 03/28/17 03/29/17 Clinic Lorazepam 0.25 - 1 ml PO Q4-6H #60 ml 03/28/17 03/29/17 Clinic Lorazepam 1 mg PO Q6H PRN #60 03/28/17 03/29/17 Clinic Morphine Liquid [Msir Liquid] 0.1 - 1 ml PO Q1hour PRN #60 ml 03/28/17 03/29/17 Clinic Ondansetron [Zofran Odt] 8 mg PO PRN tab 03/28/17 03/29/17 History Pantoprazole Sodium [Protonix] 1 tab PO DAILY tab 03/28/17 03/29/17 History Spironolactone [Aldactone] 1 tab PO DAILY tab 03/28/17 03/29/17 History Allergies/Adverse Reactions: Allergies Allergy/AdvReac Type Severity Reaction Status Date / Time NARCOTOCS AdvReac Intermediate SENSITIVITY Uncoded 03/29/17 12:25 AND OCC AGITATION Review of Systems - Constitutional Constitutional: REPORTS: General Health Poor, Weight Loss - Respiratory Respiratory: REPORTS: Other (short of breath. lung metastatic disease) - Cardiovascular Cardiovascular: REPORTS: Negative System Review - Gastrointestinal Gastrointestinal / Abdominal: REPORTS: See HPI - Neurological Neurologic: REPORTS: Other (states he had a brain MRI at [facility] in last three weeks. not known if there are any metastatic lesions. has had radiation side effects from prior radiation.) Exam - Vitals Vital Signs: Vital Signs Temperature 97.3 F Temperature Source Oral Pulse Rate [Pulse Oximeter] 82 Respiratory Rate 20 Blood Pressure [Left Arm] 141/103 Pulse Ox 93 Oxygen Flow Rate 3 Oxygen Delivery Method Nasal Cannula Height 5 ft 11 in Weight 203 lb - General General Appearance: POSITIVE: No Acute Distress, Cooperative - Head Additional Head Exam Details: has had surgical removal of left eye - Eye Eye Exam: POSITIVE: No Scleral Icterus - ENT ENT Exam: POSITIVE: Mucous Membranes Dry - Neck Neck Exam: POSITIVE: No Tenderness, No Thyromegaly - Respiratory Respiratory Exam: POSITIVE: Breathing Non Labored, Normal to Percussion and Palpation, Decreased Breath Sounds - Cardiovascular Cardiovascular Exam: POSITIVE: RRR, No Murmur, No Clicks, No Gallops, No Rubs, No JVD - GI/Abdominal GI/Abdominal Exam: POSITIVE: Normal Bowel Sounds, Non Distended, Soft, Hepatomegaly Additional GI/Abdominal Exam Details: positive for hepatomegaly and some tenderness to palpation. also some abdominal striae - Rectal Rectal Exam: POSITIVE: Deferred - External Exam: POSITIVE: Deferred Exam: POSITIVE: Deferred - Extremities Extremities Exam: POSITIVE: No Clubbing Present, No Cyanosis Present - Back Back Exam: POSITIVE: Normal Inspection, No CVA Tenderness - Neurological Neurological Exam: POSITIVE: Alert, Oriented x 3, No Facial Droop, Speech Intact / Clear, Moves All Extremities Equally - Integumentary Integumentary Exam: POSITIVE: Warm, Dry, Intact Additional Integumentary Exam Details: abdominal striae - Central Line Examination Central Line Present on Admission: Yes Central Line Type: Med-Port Central Line Location: Subclavian (R) Central Line Site Observations: POSITIVE: Asymptomatic, Intact, Patent Results - Labs CBC and BMP: 03/29/17 13:00 03/29/17 13:00 Labs - Last 24 Hours: Laboratory Results 03/29/17 Range/Units 13:00 WBC 6.67 (4.8-10.8) 10^3/uL RBC 3.44 L (4.70-6.10) 10^6/uL Hgb 11.5 L (14.0-18.0) g/dL Hct 33.9 L (42.0-52.0) % MCV 98.5 H (80-90) FL MCH 33.4 H (27-31) PG MCHC 33.9 (33-37) g/dL RDW Std Deviation 56.3 H (39-50) fL RDW Coeff of Liya 16.6 H (11.5-14.5) % Plt Count 486 H (140-350) 10*3/uL MPV 8.2 (7.4-12.2) FL Immature Gran % (Auto) 0.1 (0-5) % Neut % (Auto) 86.2 H (50-80) % Lymph % (Auto) 10.9 (10-50) % Waldo % (Auto) 2.8 L (5-15) % Eos % (Auto) 0 (0-8) % Baso % (Auto) 0 (0-1) % Immature Gran # (Auto) 0.01 10*3/UL Neut # (Auto) 5.74 10*3/UL Lymph # (Auto) 0.73 10*3/uL Waldo # (Auto) 0.19 L (0.3-0.8) 10*3/UL Eos # (Auto) 0 10*3/UL Baso # (Auto) 0 10*3/UL WBC Morphology Comment Normal morphology (NORM) Plt Morphology Comment Normal morphology (NORM) RBC Morph Comment Normal morphology (NORM) Sodium 132 L (135-145) meq/L Potassium 3.6 L (3.8-5.2) meq/L Chloride 95 L (98-112) meq/L Carbon Dioxide 29 (23-33) meq/L Anion Gap 8 (5-20) BUN 21 (7-22) mg/dL Creatinine 0.8 (0.70-1.50) mg/dL Estimated GFR > 60 (>60 ml/min/1.73m(2)) BUN/Creatinine Ratio 26.25 H (6-20) Glucose 103 (78-110) mg/dL Calculated Osmolality 276.0 (267-292) mOsm/kg Calcium 7.9 L (8.7-10.7) mg/dL Magnesium 1.8 (1.6-2.4) mg/dL Total Bilirubin 0.7 (0.3-1.2) mg/dL AST 115 H (21-57) IU/L ALT 76 H (21-72) IU/L Alkaline Phosphatase 506 H (38-126) IU/L Total Protein 5.3 L (6.1-8.0) g/dL Albumin 2.7 L (3.5-4.8) g/dL Globulin 2.6 (2.50-4.10) g/dL Albumin/Globulin Ratio 1.00 L (1.3-2.0) mg/g Amylase 246 H (30-110) U/L Lipase 932 H (23-300) IU/L - Imaging Status: Image Reviewed by Me (CXR, diffuse metastatic lesions.) Assessment and Plan - Patient Problems (1) Intractable pain Current Visit: Yes Status: Acute (2) Metastatic melanoma Current Visit: Yes Status: Acute (3) Cancer associated pain Current Visit: Yes Status: Acute (4) Hypothyroid Current Visit: Yes Status: Acute Qualifiers: Hypothyroidism type: acquired Qualified Description: Acquired hypothyroidism Qualifier Code(s): (E03.9) Hypothyroidism, unspecified (5) Hypoxia Current Visit: Yes Status: Acute (6) Autoimmune hepatitis treated with steroids Current Visit: Yes Status: Acute (7) Pancreatitis Current Visit: Yes Status: Acute Qualifiers: Chronicity: chronic Pancreatitis type: unspecified pancreatitis type Qualified Description: Chronic pancreatitis, unspecified pancreatitis type Qualifier Code(s): (K86.1) Other chronic pancreatitis - Assessment / Plan Additional Assessment/Plan Details: this is a very complex situation in which the patient has widespread metastatic disease, and is in two active clinical trials for continued treatment. He may have developed autoimmune hepatitis or has metastatic lesions in the liver, or both. His pain has been intractable, and has only been responding to IV therapy without severe confusion or other side effects. He is realistic about palliative care, but is not at a point where he wants end of life care (i.e., hospice), and may be a candidate for a palliative care group evaluation in [place] or hospice transitions here to allow IV medication management at home. I do think we need to make sure the patient is not having recurring worsening hepatitis or pancreatitis. worst case scenario for pain management is that the patient will have to come here as an outpatient for IV pain medication injections, and standing orders are there from his primary doctor. He could have hepatic encephalopahty as well, and I will check an ammonia level stop oral pain medications check labs tomorrow try to get reports from [facility] regarding current evaluations from their oncology group continue steroids, likely dependant. prognosis is extremely guarded. if no progress towards the objective of controlling pain by Friday, I will pursue transfer to [facility] for further evaluation The plan above was discussed with the patient, his , and [id number], and they all agreed.
[2017-03-29] MEDS ORDERED: POTASSIUM CHLORIDE 20 MEQ TAB PO ONE (19:09)
[2017-03-29] MEDS: HYDROmorphone 2 MG/1 ML IVP PRN (19:34)
[2017-03-29] MEDS: HEPARIN 500 UNIT/5 ML SYRINGE FOR CENTRAL LINE IVP PRN (19:37)
[2017-03-29] MEDS: ONDANSETRON 4 MG/2 ML VIAL IVP PRN (20:22)
[2017-03-29] MEDS: MEKINIST PO SCH (21:55)
[2017-03-30] MEDS: IPRATROPIUM/ALBUTEROL SULFATE 3 ML NEB NEB SCH ×4 (01:00→21:36)
[2017-03-30] MEDS: ONDANSETRON 4 MG/2 ML VIAL IVP PRN ×3 (01:09→18:14)
[2017-03-30] MEDS: HYDROmorphone 2 MG/1 ML IVP PRN ×7 (01:09→21:19)
[2017-03-30] MEDS: NORMAL SALINE 10 ML SYRINGE FLUSH IVP PRN ×4 (01:09→21:19)
[2017-03-30] MEDS: Ondansetron ODT Tab 8 MG TAB PO PRN ×2 (03:49→16:14)
[2017-03-30] MEDS: LORazepam 2 MG/1 ML VIAL IVP PRN ×4 (04:37→21:50)
[2017-03-30 05:00] LABS: BASOPHILS # (AUTO) 0.02 10*3/UL; BASOPHILS % (AUTO) 0.2 % (0-1); EOSINOPHILS # (AUTO) 0.02 10*3/UL; EOSINOPHILS % (AUTO) 0.2 % (0-8); Hematocrit [HCT] 37.1 % (42.0-52.0); Hemoglobin [HGB] 12.4 g/dL (14.0-18.0); LYMPHOCYTES # (AUTO) 2.73 10*3/uL; MEAN CORPUSCULAR HEMOGLOBIN 33.2 PG (27-31); MEAN CORPUSCULAR HGB CONC 33.4 g/dL (33-37); MEAN CORPUSCULAR VOLUME 99.5 FL (80-90); MEAN PLATELET VOLUME 8.3 FL (7.4-12.2); MONOCYTES # (AUTO) 0.24 10*3/UL (0.3-0.8); MONOCYTES % (AUTO) 2.9 % (5-15); NEUTROPHILS % (AUTO) 64.2 % (50-80); RED BLOOD COUNT 3.73 10^6/uL (4.70-6.10)
[2017-03-30 05:01] LABS: PLATELET MORPHOLOGY COMMENT NORMAL MORPHOLOGY (NORM); RBC MORPHOLOGY COMMENT NORMAL MORPHOLOGY (NORM); WBC MORPHOLOGY COMMENT NORMAL MORPHOLOGY (NORM)
[2017-03-30 05:10] LABS: AMMONIA 12 UMOL/L (9.0-33.0); BLOOD UREA NITROGEN 20 mg/dL (7-22); BUN/CREATININE RATIO 22.22 (6-20); LIPASE 962 IU/L (23-300); MAGNESIUM 1.8 mg/dL (1.6-2.4)
[2017-03-30] MEDS: Sodium Chloride 0.9% 1,000 ML PRIMARY IV SCH ×2 (07:54→20:43)
[2017-03-30] MEDS: LEVOTHYROXINE 137 MCG TABLET PO SCH (08:01)
[2017-03-30] MEDS: Dexamethasone Tab 4 MG TABLET PO SCH (08:55)
[2017-03-30] MEDS ORDERED: PANTOPRAZOLE 40 MG TABLET PO SCH (09:00)
[2017-03-30] MEDS ORDERED: ENOXAPARIN SODIUM 40 MG/0.4 ML SYRINGE SUBCUT ONE (13:50)
[2017-03-30] MEDS: metroNIDAZOLE 500mg (Premix) 500 MG in Premix 1 BAG IV SCH ×2 (13:54→20:08)
--- NOTE | 2017-03-30 13:56 | PDOC(PROG) ---
Date and Time of Service: 03/30/2017, 1353 Interval History: States the pain seems better controlled. agrees. Has diarrhea. Stated that his diarrhea developed here but he has been on Bactrim for the last 3 weeks for pneumonia prevention. He has been a 2 unit [facility] including [facility], and [facility]. No nausea or vomiting. No chest pain. Abdomen forging press lever tender. Objective : Data - Labs CBC and BMP: 03/30/17 04:55 03/30/17 04:55 Labs - Last 24 Hours: Laboratory Results 03/29/17 03/29/17 03/30/17 Range/Units 13:00 19:49 04:55 WBC 8.42 (4.8-10.8) 10^3/uL RBC 3.73 L (4.70-6.10) 10^6/uL Hgb 12.4 L (14.0-18.0) g/dL Hct 37.1 L (42.0-52.0) % MCV 99.5 H (80-90) FL MCH 33.2 H (27-31) PG MCHC 33.4 (33-37) g/dL RDW Std Deviation 59.3 H (39-50) fL RDW Coeff of Liya 17.1 H (11.5-14.5) % Plt Count 549 H (140-350) 10*3/uL MPV 8.3 (7.4-12.2) FL Immature Gran % (Auto) 0.1 (0-5) % Neut % (Auto) 64.2 (50-80) % Lymph % (Auto) 32.4 (10-50) % [place] % (Auto) 2.9 L (5-15) % Eos % (Auto) 0.2 (0-8) % Baso % (Auto) 0.2 (0-1) % Immature Gran # (Auto) 0.01 10*3/UL Neut # (Auto) 5.40 10*3/UL Lymph # (Auto) 2.73 10*3/uL [place] # (Auto) 0.24 L (0.3-0.8) 10*3/UL Eos # (Auto) 0.02 10*3/UL Baso # (Auto) 0.02 10*3/UL WBC Morphology Comment Normal morphology (NORM) Plt Morphology Comment Normal morphology (NORM) RBC Morph Comment Normal morphology (NORM) PT 12.4 H (9.7-11.4) secs INR 1.17 (0.00-5.90) N/A Sodium 133 L (135-145) meq/L Potassium 3.9 (3.8-5.2) meq/L Chloride 95 L (98-112) meq/L Carbon Dioxide 29 (23-33) meq/L Anion Gap 9 (5-20) BUN 20 (7-22) mg/dL Creatinine 0.9 (0.70-1.50) mg/dL Estimated GFR > 60 (>60 ml/min/1.73m(2)) BUN/Creatinine Ratio 22.22 H (6-20) Glucose 75 L (78-110) mg/dL Calculated Osmolality 277.0 (267-292) mOsm/kg Calcium 8.2 L (8.7-10.7) mg/dL Magnesium 1.8 (1.6-2.4) mg/dL Total Bilirubin 0.7 (0.3-1.2) mg/dL AST 118 H (21-57) IU/L ALT 77 H (21-72) IU/L Alkaline Phosphatase 518 H (38-126) IU/L Ammonia < 9 L 12 (9.0-33.0) UMOL/L Total Protein 5.8 L (6.1-8.0) g/dL Albumin 3.0 L (3.5-4.8) g/dL Globulin 2.8 (2.50-4.10) g/dL Albumin/Globulin Ratio 1.00 L (1.3-2.0) mg/g Amylase 246 H (30-110) U/L Lipase 932 H 962 H (23-300) IU/L Objective : Exam - General General Appearance: No Acute Distress, Cooperative Additional General Exam Details: Vital Signs - Last Taken Temperature 97.9 F 03/30/17 11:07 Pulse Rate 79 03/30/17 11:07 Respiratory Rate 17 03/30/17 11:07 Blood Pressure 140/97 03/30/17 11:07 Pulse Ox 95 03/30/17 11:07 - Eye Eye Exam: No Scleral Icterus - ENT ENT Exam: Mucous Membranes Moist - Respiratory Respiratory Exam: Breathing Non Labored, Decreased Breath Sounds - Cardiovascular Cardiovascular Exam: RRR, No Murmur, No Clicks, No Gallops, No Rubs, No JVD - GI/Abdominal GI/Abdominal Exam: Normal Bowel Sounds, Non Distended, Soft Additional GI/Abdominal Exam Details: Mild tenderness to palpation in right upper quadrant region. - Extremities Extremities Exam: No Clubbing Present, No Cyanosis Present Additional Extremities Exam Details: Trace edema. - Neurological Neurological Exam: Alert, Oriented x 3, No Facial Droop, Speech Intact / Clear, Moves All Extremities Equally Assessment and Plan - Patient Problems (1) C. difficile colitis Current Visit: Yes Status: Acute (2) Intractable pain Current Visit: Yes Status: Acute (3) Metastatic melanoma Current Visit: Yes Status: Acute (4) Cancer associated pain Current Visit: Yes Status: Acute (5) Hypothyroid Current Visit: Yes Status: Acute Qualifiers: Hypothyroidism type: acquired Qualified Description: Acquired hypothyroidism Qualifier Code(s): (E03.9) Hypothyroidism, unspecified (6) Hypoxia Current Visit: Yes Status: Acute (7) Autoimmune hepatitis treated with steroids Current Visit: Yes Status: Acute (8) Pancreatitis Current Visit: Yes Status: Acute Qualifiers: Chronicity: chronic Pancreatitis type: unspecified pancreatitis type Qualified Description: Chronic pancreatitis, unspecified pancreatitis type Qualifier Code(s): (K86.1) Other chronic pancreatitis - Assessment / Plan Additional Assessment/Plan Details: Start Flagyl and vancomycin with immunocompromise state. DVT prophylaxis. Check labs tomorrow. If pain is not much better tomorrow, consider CT scan of abdomen and pelvis. Overall, I think that treating the C. difficile may very well help with pain. Continue to work towards outpatient plan with hospice transitions or palliative care evaluation. This C. difficile was not hospital-acquired here. Patient had significant risk factors including his cancer, active chemotherapy, [address] [facility] , and Bactrim prior to this hospital stay all of which are likely the cause of the C. difficile.
[2017-03-30] MEDS: Vancomycin Oral Soln 125 MG/5 ML (7500MG/300ML) BOTTLE PO SCH ×2 (14:40→21:24)
[2017-03-30] MEDS ORDERED: NORMAL SALINE 1000 ML IV PRN (16:16)
[2017-03-30] MEDS: MEKINIST PO SCH (21:00)
[2017-03-31] MEDS: HYDROmorphone 2 MG/1 ML IVP PRN ×9 (00:15→18:34)
[2017-03-31] MEDS: metroNIDAZOLE 500mg (Premix) 500 MG in Premix 1 BAG IV SCH ×4 (01:27→22:58)
[2017-03-31] MEDS ORDERED: Pantoprazole Inj 40 MG in Normal Saline Flush 10 ML IVP SCH (01:30)
[2017-03-31] MEDS: CALCIUM CARBONATE 500 MG (TUMS) CHEWABLE TABLET PO PRN (01:53)
[2017-03-31] MEDS: LORazepam 2 MG/1 ML VIAL IVP PRN ×5 (03:25→22:57)
[2017-03-31] MEDS: ONDANSETRON 4 MG/2 ML VIAL IVP PRN ×4 (03:25→22:58)
[2017-03-31] MEDS: Vancomycin Oral Soln 125 MG/5 ML (7500MG/300ML) BOTTLE PO SCH ×2 (03:49→16:15)
[2017-03-31] MEDS: IPRATROPIUM/ALBUTEROL SULFATE 3 ML NEB NEB SCH ×3 (05:09→16:15)
[2017-03-31 05:18] LABS: BASOPHILS # (AUTO) 0 10*3/UL; BASOPHILS % (AUTO) 0 % (0-1); EOSINOPHILS # (AUTO) 0.01 10*3/UL; EOSINOPHILS % (AUTO) 0.2 % (0-8); Hematocrit [HCT] 33.6 % (42.0-52.0); LYMPHOCYTES # (AUTO) 0.97 10*3/uL; MEAN CORPUSCULAR HEMOGLOBIN 32.9 PG (27-31); MEAN CORPUSCULAR HGB CONC 32.7 g/dL (33-37); MEAN CORPUSCULAR VOLUME 100.6 FL (80-90); MEAN PLATELET VOLUME 8.6 FL (7.4-12.2); MONOCYTES # (AUTO) 0.18 10*3/UL (0.3-0.8); MONOCYTES % (AUTO) 3.7 % (5-15); NEUTROPHILS # (AUTO) 3.74 10*3/UL; NEUTROPHILS % (AUTO) 76.1 % (50-80); RED BLOOD COUNT 3.34 10^6/uL (4.70-6.10)
[2017-03-31 05:20] LABS: PLATELET MORPHOLOGY COMMENT NORMAL MORPHOLOGY (NORM); RBC MORPHOLOGY COMMENT NORMAL MORPHOLOGY (NORM); WBC MORPHOLOGY COMMENT NORMAL MORPHOLOGY (NORM)
[2017-03-31 05:22] LABS: BLOOD UREA NITROGEN 17 mg/dL (7-22); BUN/CREATININE RATIO 21.25 (6-20); SERUM ALBUMIN 2.7 g/dL (3.5-4.8)
[2017-03-31] MEDS: Pantoprazole Inj 40 MG in Normal Saline Flush 10 ML IVP SCH ×2 (07:37→21:01)
[2017-03-31] MEDS: LEVOTHYROXINE 137 MCG TABLET PO SCH (07:38)
[2017-03-31] MEDS: Ondansetron ODT Tab 8 MG TAB PO PRN ×2 (08:00→16:36)
[2017-03-31] MEDS: ENOXAPARIN SODIUM 40 MG/0.4 ML SYRINGE SUBCUT SCH (09:20)
[2017-03-31] MEDS: Dexamethasone Tab 4 MG TABLET PO SCH (09:20)
--- NOTE | 2017-03-31 15:11 | PDOC(PROG) ---
Date and Time of Service: 03/31/2017, 1502 Interval History: No chest pain. No shortness breath. States that he is a little more confused but his pain is well controlled. He continues to have abdominal pain however. Denies diarrhea. States that he is refusing to take vancomycin because he thinks it's causing heartburn symptoms. He does not want any breathing therapies and has been refusing those as well. Objective : Data - Labs CBC and BMP: 03/31/17 04:40 03/31/17 04:40 Labs - Last 24 Hours: Laboratory Results 03/31/17 Range/Units 04:40 WBC 4.91 (4.8-10.8) 10^3/uL RBC 3.34 L (4.70-6.10) 10^6/uL Hgb 11.0 L (14.0-18.0) g/dL Hct 33.6 L (42.0-52.0) % MCV 100.6 H (80-90) FL MCH 32.9 H (27-31) PG MCHC 32.7 L (33-37) g/dL RDW Std Deviation 59.5 H (39-50) fL RDW Coeff of Liya 17.3 H (11.5-14.5) % Plt Count 414 H (140-350) 10*3/uL MPV 8.6 (7.4-12.2) FL Immature Gran % (Auto) 0.2 (0-5) % Neut % (Auto) 76.1 (50-80) % Lymph % (Auto) 19.8 (10-50) % [place] % (Auto) 3.7 L (5-15) % Eos % (Auto) 0.2 (0-8) % Baso % (Auto) 0 (0-1) % Immature Gran # (Auto) 0.01 10*3/UL Neut # (Auto) 3.74 10*3/UL Lymph # (Auto) 0.97 10*3/uL [place] # (Auto) 0.18 L (0.3-0.8) 10*3/UL Eos # (Auto) 0.01 10*3/UL Baso # (Auto) 0 10*3/UL WBC Morphology Comment Normal morphology (NORM) Plt Morphology Comment Normal morphology (NORM) RBC Morph Comment Normal morphology (NORM) Sodium 131 L (135-145) meq/L Potassium 3.9 (3.8-5.2) meq/L Chloride 99 (98-112) meq/L Carbon Dioxide 27 (23-33) meq/L Anion Gap 5 (5-20) BUN 17 (7-22) mg/dL Creatinine 0.8 (0.70-1.50) mg/dL Estimated GFR > 60 (>60 ml/min/1.73m(2)) BUN/Creatinine Ratio 21.25 H (6-20) Glucose 71 L (78-110) mg/dL Calculated Osmolality 271.0 (267-292) mOsm/kg Calcium 8.0 L (8.7-10.7) mg/dL Total Bilirubin 0.6 (0.3-1.2) mg/dL AST 124 H (21-57) IU/L ALT 72 (21-72) IU/L Alkaline Phosphatase 427 H (38-126) IU/L Total Protein 5.2 L (6.1-8.0) g/dL Albumin 2.7 L (3.5-4.8) g/dL Globulin 2.5 (2.50-4.10) g/dL Albumin/Globulin Ratio 1.00 L (1.3-2.0) mg/g Objective : Exam - General General Appearance: No Acute Distress, Cooperative Additional General Exam Details: Vital Signs - Last Taken Temperature 97.8 F 03/31/17 11:21 Pulse Rate 93 03/31/17 11:21 Respiratory Rate 17 03/31/17 11:21 Blood Pressure 142/104 03/31/17 11:21 Pulse Ox 92 03/31/17 11:21 - Eye Eye Exam: No Scleral Icterus - ENT ENT Exam: Mucous Membranes Moist - Respiratory Respiratory Exam: Breathing Non Labored, Decreased Breath Sounds - Cardiovascular Cardiovascular Exam: RRR, No Murmur, No Clicks, No Gallops, No Rubs, No JVD - GI/Abdominal GI/Abdominal Exam: Normal Bowel Sounds, Non Distended, Soft, Hepatomegaly Additional GI/Abdominal Exam Details: pump tender to palpation., Generalized. - Extremities Extremities Exam: No Clubbing Present, No Edema Present, No Cyanosis Present - Neurological Neurological Exam: Alert, Oriented x 3, No Facial Droop, Speech Intact / Clear, Moves All Extremities Equally - Central Line Examination Central Line Present on Admission: Yes Central Line Type: Med-Port Central Line Location: Subclavian (R) Assessment and Plan - Patient Problems (1) C. difficile colitis Current Visit: Yes Status: Acute (2) Intractable pain Current Visit: Yes Status: Acute (3) Metastatic melanoma Current Visit: Yes Status: Acute (4) Cancer associated pain Current Visit: Yes Status: Acute (5) Hypothyroid Current Visit: Yes Status: Acute Qualifiers: Hypothyroidism type: acquired Qualified Description: Acquired hypothyroidism Qualifier Code(s): (E03.9) Hypothyroidism, unspecified (6) Hypoxia Current Visit: Yes Status: Acute (7) Autoimmune hepatitis treated with steroids Current Visit: Yes Status: Acute (8) Pancreatitis Current Visit: Yes Status: Acute Qualifiers: Chronicity: chronic Pancreatitis type: unspecified pancreatitis type Qualified Description: Chronic pancreatitis, unspecified pancreatitis type Qualifier Code(s): (K86.1) Other chronic pancreatitis - Assessment / Plan Additional Assessment/Plan Details: Overall, I think we have better control the pain, but are still working towards an outpatient plan for the patient. Hoping to discuss with hospice and I placed a call to the director. The hospice transitions program might be a good option for him but I don't know if they run program or not. I am awaiting a call back. Get CT scan of abdomen and pelvis with C. difficile colitis and continued abdominal pain. Continue Flagyl but stop vancomycin. I advised the patient that I think dual therapy might be best given his immunocompromised state, but we'll extend Flagyl for at least 2 weeks if not longer. Stop inhalers. Stop nebulizers. Hopefully, we can figure out an outpatient plan in the next day or 2.
[2017-03-31] MEDS: NORMAL SALINE 10 ML SYRINGE FLUSH IVP PRN ×4 (16:32→22:58)
--- NOTE | 2017-03-31 17:44 | DI ---
CT ABDOMEN SCAN WITH IV CONTRAST, 03/31/2017 1:19 PM : Clinical History: Abdominal pain. C. Difficile colitis. 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 Previous Exam: 03/02/2017. Scans are performed from the lower lung bases through the liver and kidneys with IV contrast. 75 ml o f Isovue 300 was injected IV. The patient could not tolerate oral contrast. There are multiple pulmonary metastases too numerous to count. When compared to the previous CT scan, the number of lesions have increased although the size of the larger lesions probably has not change d significantly. There is marked hepatomegaly and the liver is larger than on the previous study. Num erous metastases are visualized and these are too numerous to count. The metastases have increased nuria th in number and size since the prior scan. The gallbladder is contracted but grossly normal. The lef t adrenal gland metastasis is unchanged. The right adrenal lesion is smaller. The spleen and pancreas are normal. Both kidneys are normal in size, shape, position and contour. There is no hydronephrosis or hydroureter. No renal or ureteral calculi are present. Since the previous exam, a large oblong ma ss is developed in the mesentery. It is inhomogeneous in texture and corresponds to the location wher e there was infiltrative change in the mesentery to the right of midline on the previous exam. What p robably is the left colic artery is the inferior margin of the bulk of the lesion in the inferior mar gin of the right lobe of liver is the superior margin of the lesion. This large tumor mass measures a pproximately 5.5 x 5.5 x 15 cm and courses from the epigastric region toward the right iliac crest. T he hepatic flexure and the proximal transverse colon is located between the inferior margin of the ri ght lobe of the liver and the new mesenteric tumor mass. Similar tumor extends into the mesentery rae ng the left margin of the left colic artery. Additional isolated metastases are located scattered thr oughout the remaining mesenteric fat. There is an isolated metastasis in the subcutaneous fat in the right upper quadrant. No ascites is present. There is diffuse anasarca. READIN. Increased number and size of pulmonary and liver metastasis with development of a large mesenteri c mass to the right of midline measuring 5.5 x 5.5 x 15 cm. There are extensive additional isolated m esenteric metastases as well as one subcutaneous metastasis in the right upper quadrant. 2. Diffuse anasarca. CT PELVIS SCAN WITH IV CONTRAST, 03/31/2017 1:19 PM: Clinical History: See above. Previous Exam: 03/02/2017. Scans are performed from just superior to the umbilicus to the symphysis pubis with IV contrast. This is the same bolus of contrast used for the CT scans of the abdomen. Scans through the lower abdomen and pelvis show no masses or abnormal fluid collections. There is no adenopathy. The appendix is not identified. The small bowel, terminal ileum, and ileocecal valve are normal. The colon is virtually completely empty from the cecum to the hepatic flexure. No obvious enh ancing be caused is seen. There are no hernias. READING: Normal CT scan of the pelvis.
[2017-03-31] MEDS ORDERED: DEXAMETHASONE PF 10 MG/1 ML VIAL IVP ONE (19:51)
[2017-03-31] MEDS: MEKINIST PO SCH (21:00)
[2017-04-01] MEDS: CALCIUM CARBONATE 500 MG (TUMS) CHEWABLE TABLET PO PRN (00:19)
[2017-04-01] MEDS: HYDROmorphone 2 MG/1 ML IVP PRN ×7 (01:04→21:28)
[2017-04-01] MEDS: Ondansetron ODT Tab 8 MG TAB PO PRN ×3 (01:05→19:20)
[2017-04-01] MEDS: ONDANSETRON 4 MG/2 ML VIAL IVP PRN ×4 (04:39→15:59)
[2017-04-01] MEDS: metroNIDAZOLE 500mg (Premix) 500 MG in Premix 1 BAG IV SCH ×4 (04:39→21:30)
[2017-04-01] MEDS: NORMAL SALINE 10 ML SYRINGE FLUSH IVP PRN (04:40)
[2017-04-01] MEDS: LORazepam 2 MG/1 ML VIAL IVP PRN ×4 (07:16→19:20)
[2017-04-01] MEDS: LEVOTHYROXINE 137 MCG TABLET PO SCH (07:16)
[2017-04-01] MEDS: ENOXAPARIN SODIUM 40 MG/0.4 ML SYRINGE SUBCUT SCH (08:36)
[2017-04-01] MEDS ORDERED: Sodium Chloride 0.9% 500 ML ONE (08:48)
[2017-04-01] MEDS: Pantoprazole Inj 40 MG in Normal Saline Flush 10 ML IVP SCH ×2 (09:00→19:20)
[2017-04-01] MEDS ORDERED: OMEPRAZOLE 40 MG CAPSULE PO ONE (15:02)
[2017-04-01] MEDS ORDERED: Famotidine Inj 20 MG in Normal Saline Flush 10 ML IVP ONE (15:02)
--- NOTE | 2017-04-01 15:25 | PDOC(PROG) ---
Date and Time of Service: 04/01/2017, 1516 Interval History: States his pain has been poorly controlled overnight and wants Dilaudid more frequently. Weak when he gets up. No nausea or vomiting but complains of significant heartburn. Objective : Data - Labs CBC and BMP: 03/31/17 04:40 03/31/17 04:40 Objective : Exam - General General Appearance: No Acute Distress, Cooperative Additional General Exam Details: Appears to be in pain, not toxic. Vital Signs - Last Taken Temperature 97.9 F 04/01/17 11:34 Pulse Rate 85 04/01/17 11:34 Respiratory Rate 17 04/01/17 11:34 Blood Pressure 159/109 04/01/17 11:34 Pulse Ox 95 04/01/17 11:34 - Eye Eye Exam: No Scleral Icterus - Respiratory Respiratory Exam: Breathing Non Labored, Decreased Breath Sounds - Cardiovascular Cardiovascular Exam: RRR, No Murmur, No Clicks, No Gallops, No Rubs, No JVD - GI/Abdominal GI/Abdominal Exam: Normal Bowel Sounds, Soft, Hepatomegaly Additional GI/Abdominal Exam Details: Tender to palpation. Right and mid quadrants especially - Extremities Extremities Exam: No Clubbing Present, No Cyanosis Present, +2 Edema (In lower extremities and ankles bilaterally) - Neurological Neurological Exam: Alert, Oriented x 3, No Facial Droop, Speech Intact / Clear, Moves All Extremities Equally Assessment and Plan - Patient Problems (1) Metastatic melanoma Current Visit: Yes Status: Acute (2) C. difficile colitis Current Visit: Yes Status: Acute (3) Intractable pain Current Visit: Yes Status: Acute (4) Cancer associated pain Current Visit: Yes Status: Acute (5) Hypothyroid Current Visit: Yes Status: Acute Qualifiers: Hypothyroidism type: acquired Qualified Description: Acquired hypothyroidism Qualifier Code(s): (E03.9) Hypothyroidism, unspecified (6) Hypoxia Current Visit: Yes Status: Acute (7) Autoimmune hepatitis treated with steroids Current Visit: Yes Status: Acute (8) Pancreatitis Current Visit: Yes Status: Acute Qualifiers: Chronicity: chronic Pancreatitis type: unspecified pancreatitis type Qualified Description: Chronic pancreatitis, unspecified pancreatitis type Qualifier Code(s): (K86.1) Other chronic pancreatitis - Assessment / Plan Additional Assessment/Plan Details: I was able to obtain imaging records (without the actual pictures) from [facility]. It is clear that since June 2016, the patient has had worsening spread of his melanoma. Increase Dilaudid in frequency and dose. Increased Ativan in frequency and dose. Added Prilosec, and Pepcid. Continue dexamethasone, thyroid medications, and cancer agents as per patient request. Continue Flagyl for C. diff. stools are not formed completely yet. prognosis is guarded. Patient will likely of this melanoma, regardless of any therapy we can offer him. Patient is now understanding that more completely.
[2017-04-01] MEDS: MEKINIST PO SCH (21:00)
[2017-04-01] MEDS: Famotidine Inj 20 MG in Normal Saline Flush 10 ML IVP SCH (21:29)
[2017-04-02] MEDS: HYDROmorphone 2 MG/1 ML IVP PRN ×8 (00:32→23:58)
[2017-04-02] MEDS: LORazepam 2 MG/1 ML VIAL IVP PRN ×8 (00:33→23:58)
[2017-04-02] MEDS: ONDANSETRON 4 MG/2 ML VIAL IVP PRN ×4 (00:38→13:32)
[2017-04-02] MEDS: metroNIDAZOLE 500mg (Premix) 500 MG in Premix 1 BAG IV SCH ×4 (04:24→22:38)
[2017-04-02] MEDS: LEVOTHYROXINE 137 MCG TABLET PO SCH (05:19)
[2017-04-02] MEDS: Pantoprazole Inj 40 MG in Normal Saline Flush 10 ML IVP SCH ×2 (09:24→19:07)
[2017-04-02] MEDS: OMEPRAZOLE 40 MG CAPSULE PO SCH (09:25)
[2017-04-02] MEDS: Famotidine Inj 20 MG in Normal Saline Flush 10 ML IVP SCH ×2 (09:25→20:36)
--- NOTE | 2017-04-02 18:06 | PDOC(PROG) ---
Date and Time of Service: 04/02/2017, 1804. Interval History: Pain is still present in the abdomen and definitely is waxing and waning. Seems a little better controlled today. Stools are still loose. Fatigued markedly. No chest pain. Does seem a little short of breath with activities. Pain definitely worsens with activities. I spoke with the patient's oncology nurse and updated them and sent faxed down to them regarding patient's recent CT scan findings of large mesenteric mass, increased pulmonary lesions, and increased liver lesions. Thus far, [facility] melanoma clinic is in agreement with our plan here to continue to treat the patient's pain and discomfort and maintain patient on oral chemotherapy agents until he decides otherwise. Patient is weak enough that it is not clear he will ever be able to make another appointment there. Patient continues again to have loose stools. Objective : Data - Labs CBC and BMP: 03/31/17 04:40 03/31/17 04:40 Objective : Exam - General General Appearance: No Acute Distress, Cooperative Additional General Exam Details: Weak. Vital Signs - Last Taken Temperature 97.5 F 04/02/17 16:51 Pulse Rate 101 H 04/02/17 16:51 Respiratory Rate 10 L 04/02/17 16:51 Blood Pressure 144/116 04/02/17 16:51 Pulse Ox 92 04/02/17 16:51 - Respiratory Respiratory Exam: Breathing Non Labored, Decreased Breath Sounds - Cardiovascular Cardiovascular Exam: RRR, No Murmur, No Clicks, No Gallops, No Rubs, No JVD - GI/Abdominal GI/Abdominal Exam: Normal Bowel Sounds, Soft, Hepatomegaly Additional GI/Abdominal Exam Details: Has some mottling and abdomen, striae are little more noticeable, tenderness in right upper quadrant and mid abdomen. - Extremities Extremities Exam: No Clubbing Present, No Cyanosis Present, +2 Edema (Edema is worse in right lower extremity in particular but is also no swollen left lower extremity.) - Neurological Neurological Exam: Alert, No Facial Droop, Speech Intact / Clear, Moves All Extremities Equally Assessment and Plan - Patient Problems (1) Metastatic melanoma Current Visit: Yes Status: Acute (2) C. difficile colitis Current Visit: Yes Status: Acute (3) Intractable pain Current Visit: Yes Status: Acute (4) Cancer associated pain Current Visit: Yes Status: Acute (5) Hypothyroid Current Visit: Yes Status: Acute Qualifiers: Hypothyroidism type: acquired Qualified Description: Acquired hypothyroidism Qualifier Code(s): (E03.9) Hypothyroidism, unspecified (6) Hypoxia Current Visit: Yes Status: Acute (7) Autoimmune hepatitis treated with steroids Current Visit: Yes Status: Acute (8) Pancreatitis Current Visit: Yes Status: Acute Qualifiers: Chronicity: chronic Pancreatitis type: unspecified pancreatitis type Qualified Description: Chronic pancreatitis, unspecified pancreatitis type Qualifier Code(s): (K86.1) Other chronic pancreatitis - Assessment / Plan Additional Assessment/Plan Details: The patient's C. difficile is still not very well controlled. He still continues to have loose stools. Given this and his severe immunocompromised state, I think it best to watch patient here for now and continue Flagyl. He is in the true palliative care setting somewhere between aggressive therapy for melanoma and treatment of primary symptoms of pain and discomfort. Because of his significant and robust response to IV narcotics, it will be impossible to do this at home without entry into the hospice program, and the best place for the patient to continue to do his pain control, therapy for C. difficile, is to stay here. May check labs tomorrow.
[2017-04-02] MEDS: NORMAL SALINE 10 ML SYRINGE FLUSH IVP PRN (19:08)
[2017-04-02] MEDS: HEPARIN 500 UNIT/5 ML SYRINGE FOR CENTRAL LINE IVP PRN (19:08)
[2017-04-02] MEDS: MEKINIST PO SCH (21:52)
[2017-04-03] MEDS: ONDANSETRON 4 MG/2 ML VIAL IVP PRN ×5 (00:13→16:05)
[2017-04-03] MEDS: LORazepam 2 MG/1 ML VIAL IVP PRN ×2 (03:37→08:24)
[2017-04-03] MEDS: HYDROmorphone 2 MG/1 ML IVP PRN ×7 (03:37→20:24)
[2017-04-03] MEDS: metroNIDAZOLE 500mg (Premix) 500 MG in Premix 1 BAG IV SCH ×4 (03:38→22:19)
[2017-04-03] MEDS: LEVOTHYROXINE 137 MCG TABLET PO SCH (05:22)
[2017-04-03] MEDS: Pantoprazole Inj 40 MG in Normal Saline Flush 10 ML IVP SCH ×2 (08:23→20:25)
[2017-04-03] MEDS: NORMAL SALINE 10 ML SYRINGE FLUSH IVP PRN ×4 (08:25→16:11)
[2017-04-03] MEDS: Famotidine Inj 20 MG in Normal Saline Flush 10 ML IVP SCH ×2 (09:51→20:24)
[2017-04-03 10:00] LABS: BASOPHILS # (AUTO) 0.01 10*3/UL; BASOPHILS % (AUTO) 0.2 % (0-1); EOSINOPHILS # (AUTO) 0 10*3/UL; EOSINOPHILS % (AUTO) 0 % (0-8); Hematocrit [HCT] 33.7 % (42.0-52.0); Hemoglobin [HGB] 11.3 g/dL (14.0-18.0); LYMPHOCYTES # (AUTO) 0.92 10*3/uL; MEAN CORPUSCULAR HEMOGLOBIN 33.2 PG (27-31); MEAN CORPUSCULAR HGB CONC 33.5 g/dL (33-37); MEAN CORPUSCULAR VOLUME 99.1 FL (80-90); MEAN PLATELET VOLUME 8.8 FL (7.4-12.2); MONOCYTES # (AUTO) 0.25 10*3/UL (0.3-0.8); MONOCYTES % (AUTO) 5.7 % (5-15); NEUTROPHILS # (AUTO) 3.17 10*3/UL; NEUTROPHILS % (AUTO) 72.8 % (50-80)
[2017-04-03 10:16] LABS: PLATELET MORPHOLOGY COMMENT NORMAL MORPHOLOGY (NORM); RBC MORPHOLOGY COMMENT NORMAL MORPHOLOGY (NORM); WBC MORPHOLOGY COMMENT NORMAL MORPHOLOGY (NORM)
[2017-04-03 10:27] LABS: BLOOD UREA NITROGEN 28 mg/dL (7-22); SERUM ALBUMIN 2.7 g/dL (3.5-4.8)
[2017-04-03] MEDS: Ondansetron ODT Tab 8 MG TAB PO PRN (10:42)
[2017-04-03] MEDS: OMEPRAZOLE 40 MG CAPSULE PO SCH (10:42)
[2017-04-03] MEDS ORDERED: FUROSEMIDE 10 MG/1 ML - 4 ML IVP ONE (16:07)
[2017-04-03] MEDS ORDERED: FUROSEMIDE 10 MG/1 ML - 4 ML ONE (16:09)
--- NOTE | 2017-04-03 16:37 | PDOC(PROG) ---
Date and Time of Service: 04/03/2017, 1629 Interval History: has been more confused today, complains of edema. Pain seemingly controlled. Still having loose stools. Having trouble keeping oxygen on today due to confusion. Objective : Data - Labs CBC and BMP: 04/03/17 09:55 04/03/17 09:55 Labs - Last 24 Hours: Laboratory Results 04/03/17 Range/Units 09:55 WBC 4.36 L (4.8-10.8) 10^3/uL RBC 3.40 L (4.70-6.10) 10^6/uL Hgb 11.3 L (14.0-18.0) g/dL Hct 33.7 L (42.0-52.0) % MCV 99.1 H (80-90) FL MCH 33.2 H (27-31) PG MCHC 33.5 (33-37) g/dL RDW Std Deviation 60.3 H (39-50) fL RDW Coeff of Liya 17.4 H (11.5-14.5) % Plt Count 336 (140-350) 10*3/uL MPV 8.8 (7.4-12.2) FL Immature Gran % (Auto) 0.2 (0-5) % Neut % (Auto) 72.8 (50-80) % Lymph % (Auto) 21.1 (10-50) % [place] % (Auto) 5.7 (5-15) % Eos % (Auto) 0 (0-8) % Baso % (Auto) 0.2 (0-1) % Immature Gran # (Auto) 0.01 10*3/UL Neut # (Auto) 3.17 10*3/UL Lymph # (Auto) 0.92 10*3/uL [place] # (Auto) 0.25 L (0.3-0.8) 10*3/UL Eos # (Auto) 0 10*3/UL Baso # (Auto) 0.01 10*3/UL WBC Morphology Comment Normal morphology (NORM) Plt Morphology Comment Normal morphology (NORM) RBC Morph Comment Normal morphology (NORM) Sodium 129 L (135-145) meq/L Potassium 4.4 (3.8-5.2) meq/L Chloride 98 (98-112) meq/L Carbon Dioxide 23 (23-33) meq/L Anion Gap 8 (5-20) BUN 28 H (7-22) mg/dL Creatinine 1.0 (0.70-1.50) mg/dL Estimated GFR > 60 (>60 ml/min/1.73m(2)) BUN/Creatinine Ratio 28.00 H (6-20) Glucose 94 (78-110) mg/dL Calculated Osmolality 273.0 (267-292) mOsm/kg Calcium 8.0 L (8.7-10.7) mg/dL Total Bilirubin 0.9 (0.3-1.2) mg/dL AST 234 H (21-57) IU/L ALT 92 H (21-72) IU/L Alkaline Phosphatase 443 H (38-126) IU/L Total Protein 5.2 L (6.1-8.0) g/dL Albumin 2.7 L (3.5-4.8) g/dL Globulin 2.5 (2.50-4.10) g/dL Albumin/Globulin Ratio 1.00 L (1.3-2.0) mg/g Lipase (23-300) IU/L Additional Lab Results: I discussed lipase level with the lab, over 2500 Objective : Exam - General General Appearance: Cooperative Additional General Exam Details: confused today, took off oxygen on exam frequently today. - ENT ENT Exam: Mucous Membranes Dry - Respiratory Respiratory Exam: Breathing Non Labored, Decreased Breath Sounds - Cardiovascular Cardiovascular Exam: No Murmur, No Clicks, No Gallops, No Rubs, Tachycardia, No JVD - GI/Abdominal GI/Abdominal Exam: Normal Bowel Sounds, Hepatomegaly Additional GI/Abdominal Exam Details: tender, firm in upper quadrants - Extremities Extremities Exam: +3 Edema (bilaterally, edema is worse, right > left) - Neurological Neurological Exam: Alert, No Facial Droop, Speech Intact / Clear, Moves All Extremities Equally, Altered Assessment and Plan - Patient Problems (1) Altered mental status Current Visit: Yes Status: Acute Qualifiers: Altered mental status type: delirium Qualified Description: Delirium Qualifier Code(s): (R41.0) Disorientation, unspecified (2) Metastatic melanoma Current Visit: Yes Status: Acute (3) C. difficile colitis Current Visit: Yes Status: Acute (4) Intractable pain Current Visit: Yes Status: Acute (5) Cancer associated pain Current Visit: Yes Status: Acute (6) Hypothyroid Current Visit: Yes Status: Acute Qualifiers: Hypothyroidism type: acquired Qualified Description: Acquired hypothyroidism Qualifier Code(s): (E03.9) Hypothyroidism, unspecified (7) Hypoxia Current Visit: Yes Status: Acute (8) Autoimmune hepatitis treated with steroids Current Visit: Yes Status: Acute (9) Pancreatitis Current Visit: Yes Status: Acute Qualifiers: Chronicity: chronic Pancreatitis type: unspecified pancreatitis type Qualified Description: Chronic pancreatitis, unspecified pancreatitis type Qualifier Code(s): (K86.1) Other chronic pancreatitis - Assessment / Plan Additional Assessment/Plan Details: still a very difficult patient to manage. Pain is intermittently controlled, but patient is very sensitive to accumulation of pain medications, oral or IV, and can get confused easily. He is still having loose stools indicating difficulty getting C diff under control, and likely malignant melanoma is worsening its spread daily. It is not safe to send the patient home under these circumstances. His weakness is much more profound try lasix for edema, but likely lymphangetic spread of melanoma. prognosis still remains guarded, but the patient and his family are more at terms with the fact that this could be getting within days of the end of life. In a palliative care setting at this time and not safe to do this therapy at home. Home hospice will not work based on family's situation and the patient, sindhuiet closer to that decision, is not there yet.
[2017-04-03] MEDS: MEKINIST PO SCH (22:18)
[2017-04-04] MEDS ORDERED: metroNIDAZOLE 500mg (Premix) 500 MG/100 ML BAG IV ONE ×2 (05:08→15:05)
[2017-04-04 15:16] LABS: BUN/CREATININE RATIO 20.55 (6-20)
[2017-04-04 15:17] LABS: SERUM ALBUMIN 3.1 g/dL (3.5-4.8)
[2017-04-04] MEDS: HYDROmorphone 2 MG/1 ML IVP PRN ×3 (16:15→20:42)
[2017-04-04] MEDS: LEVOTHYROXINE 137 MCG TABLET PO SCH (16:31)
[2017-04-04] MEDS: metroNIDAZOLE 500mg (Premix) 500 MG in Premix 1 BAG IV SCH ×2 (16:31→17:28)
[2017-04-04] MEDS: Pantoprazole Inj 40 MG in Normal Saline Flush 10 ML IVP SCH ×2 (16:32→20:31)
[2017-04-04] MEDS: OMEPRAZOLE 40 MG CAPSULE PO SCH (16:32)
[2017-04-04] MEDS: Famotidine Inj 20 MG in Normal Saline Flush 10 ML IVP SCH ×2 (16:32→20:32)
[2017-04-04] MEDS: CALCIUM CARBONATE 500 MG (TUMS) CHEWABLE TABLET PO PRN (16:32)
--- NOTE | 2017-04-04 16:39 | PDOC(PROG) ---
Date and Time of Service: 04/04/2017 4:38 PM Interval History: Subjective I saw the patient early this morning please see my note, the note is a paper chart note because the system was done. I went to see the patient again as he developed chest pain felt in the left side of the chest on and off he said variable in intensity. He got the some Dilaudid and that seemed to lessen the pain. Objective : Data - Labs CBC and BMP: 04/03/17 09:55 04/04/17 07:30 Objective : Exam - General General Appearance: No Acute Distress, Cooperative, Obese - Head Head Exam: Normal Inspection, Atraumatic - Eye Eye Exam: Normal Appearance - ENT ENT Exam: Normal Exam - Neck Neck Exam: Normal Inspection - Respiratory Respiratory Exam: Clear to Auscultation - Bilaterally - Cardiovascular Cardiovascular Exam: RRR Assessment and Plan - Patient Problems (1) Metastatic melanoma Current Visit: Yes Status: Acute Comment: I did tell him that His disease is advanced and he knows that he knows that the he has metastasis to the liver and to the lungs there is also a large abdominal mass, we did discuss that our aim is more comfort care and trying to relieve his symptoms especially the pain. I did tell him we may have to accept some of the side effects of the medication and that times this can be confusion. I did tell him what I will do is to increase the dosage of the Dilaudid now and watch him the next few hours and see what happens if symptoms still uncontrolled I did tell him we'll probably put him on a IV pain drip medications. He is in agreement with this plan the and [id number] are also in agreement. I did discuss with him that we'll stop doing blood tests and they agreed with this plan. Code(s): C79.9 - Secondary malignant neoplasm of unspecified site
--- NOTE | 2017-04-04 17:33 | EKG ---
[address] [address] Measurements Intervals [place] Rate: 95 P: 77 OK: 161 QRS: 71 QRSD: 85 T: 71 QT: 328 QTc: 381 Interpretive Statements SINUS RHYTHM POSSIBLE LEFT ATRIAL ENLARGEMENT [-0.1mV P WAVE IN V1/V2] [email or web address]
[2017-04-04] MEDS ORDERED: metroNIDAZOLE 500mg (Premix) 500 MG/100 ML BAG IV SCH (19:00)
[2017-04-04] MEDS: metroNIDAZOLE 500mg (Premix) 500 MG/100 ML BAG IV SCH (19:17)
[2017-04-04] MEDS: NORMAL SALINE 10 ML SYRINGE FLUSH IVP PRN (19:19)
[2017-04-04] MEDS: ONDANSETRON 4 MG/2 ML VIAL IVP PRN (20:32)
[2017-04-04] MEDS: LORazepam 2 MG/1 ML VIAL IVP PRN (20:42)
[2017-04-04] MEDS: MEKINIST PO SCH (21:05)
[2017-04-05] MEDS: metroNIDAZOLE 500mg (Premix) 500 MG/100 ML BAG IV SCH ×2 (01:09→08:24)
[2017-04-05] MEDS: HYDROmorphone 2 MG/1 ML IVP PRN ×7 (01:10→23:59)
[2017-04-05] MEDS: LORazepam 2 MG/1 ML VIAL IVP PRN ×4 (01:10→23:59)
[2017-04-05] MEDS: NORMAL SALINE 10 ML SYRINGE FLUSH IVP PRN ×5 (01:12→16:17)
[2017-04-05] MEDS: ONDANSETRON 4 MG/2 ML VIAL IVP PRN ×3 (01:27→23:59)
[2017-04-05] MEDS: Ondansetron ODT Tab 8 MG TAB PO PRN ×2 (04:34→10:10)
[2017-04-05] MEDS: LEVOTHYROXINE 137 MCG TABLET PO SCH (08:23)
[2017-04-05] MEDS: Pantoprazole Inj 40 MG in Normal Saline Flush 10 ML IVP SCH (08:25)
[2017-04-05] MEDS: Famotidine Inj 20 MG in Normal Saline Flush 10 ML IVP SCH ×2 (08:26→21:09)
--- NOTE | 2017-04-05 09:59 | PDOC(PROG) ---
Date and Time of Service: 04/05/2017 9:59 AM Interval History: Subjective Still having pain in his chest on and off but overall pain seems to be controlled with the current pain medications. he is not more short of breath. He is thinking the pain in the chest now it's more like indigestion and heartburn especially after he eats. No diarrhea. Apparently had chemotherapy pill for 21 days now and they told him to hold for 7 days and then restart again. Objective : Data - Labs CBC and BMP: 04/03/17 09:55 04/04/17 07:30 Objective : Exam - General Additional General Exam Details: Looks ill. Sleepy. But arousable - Head Head Exam: Normal Inspection - Eye Eye Exam: Normal Appearance - ENT ENT Exam: Normal Exam - Neck Neck Exam: Normal Inspection - Respiratory Respiratory Exam: Clear to Auscultation - Bilaterally - Cardiovascular Cardiovascular Exam: RRR - GI/Abdominal GI/Abdominal Exam: Non Tender Additional GI/Abdominal Exam Details: Mass in the abdomen. - External Exam: Deferred - Extremities Extremities Exam: Normal Inspection - Neurological Additional Neurological Exam Details: Sleepy but arousable. Assessment and Plan - Patient Problems (1) Metastatic melanoma Current Visit: Yes Status: Acute Comment: It seems the current dosage of the Dilaudid seemed to be controlling his pain. In the afternoon yesterday I talked to him about maybe switching to IV drip if pain is not controlled seems to be though controlled we'll keep the same dosage. He continued to complain also from heartburn will add sucralfate in addition to the protonix and Pepcid. I did tell them yesterday that our goal is to keep him comfortable. Home hospice will not work based on family situation. Code(s): C79.9 - Secondary malignant neoplasm of unspecified site (2) C. difficile colitis Current Visit: Yes Status: Acute Comment: Diarrhea seems to be improved. I think we'll switch him to by mouth medication he seems to be able to tolerate oral medications. Code(s): A04.7 - Enterocolitis due to Clostridium difficile (3) Autoimmune hepatitis treated with steroids Current Visit: Yes Status: Acute Comment: We'll try switching him back to the oral steroid that he was taking. Per the notes from [facility] the plan is to taper it by 2 mg per week. Code(s): K75.4 - Autoimmune hepatitis (4) Hypothyroid Current Visit: Yes Status: Acute Comment: Same med Code(s): E03.9 - Hypothyroidism, unspecified Qualifiers: Hypothyroidism type: acquired Qualified Code(s): E03.9 - Hypothyroidism, unspecified (5) Elevated lipase Current Visit: Yes Status: Acute Comment: There is a mass in the abdmen maybe this is secondary to the tumor infiltration causing the elevated lipase. Code(s): R74.8 - Abnormal levels of other serum enzymes
[2017-04-05] MEDS: OMEPRAZOLE 40 MG CAPSULE PO SCH ×2 (11:46→16:17)
[2017-04-05] MEDS: Sucralfate Tab 1 GM TAB PO SCH ×3 (11:46→21:08)
[2017-04-05] MEDS: HEPARIN 500 UNIT/5 ML SYRINGE FOR CENTRAL LINE IVP PRN (12:06)
[2017-04-05] MEDS: metroNIDAZOLE Tab 500 MG TAB PO SCH ×2 (15:10→21:08)
[2017-04-06] MEDS: HYDROmorphone 2 MG/1 ML IVP PRN ×7 (03:34→22:18)
[2017-04-06] MEDS: NORMAL SALINE 10 ML SYRINGE FLUSH IVP PRN ×4 (03:34→12:42)
[2017-04-06] MEDS: Ondansetron ODT Tab 8 MG TAB PO PRN ×2 (06:53→22:15)
[2017-04-06] MEDS: Sucralfate Tab 1 GM TAB PO SCH ×4 (06:54→22:11)
[2017-04-06] MEDS: OMEPRAZOLE 40 MG CAPSULE PO SCH ×2 (06:54→15:41)
[2017-04-06] MEDS: LEVOTHYROXINE 137 MCG TABLET PO SCH (07:08)
--- NOTE | 2017-04-06 08:46 | PDOC(PROG) ---
Date and Time of Service: 04/12/2017 8:40 AM Interval History: Subjective Patient seemed to be comfortable, pain seemed to be controlled with current pain medication. Still have indigestion at times. No diarrhea. Objective : Data - Labs CBC and BMP: 04/03/17 09:55 04/04/17 07:30 Objective : Exam - General Additional General Exam Details: Looks chronically ill, sleepy but arousable - Head Head Exam: Normal Inspection, Atraumatic - Eye Eye Exam: Normal Appearance - ENT ENT Exam: Normal Exam - Neck Neck Exam: Normal Inspection - Respiratory Additional Respiratory Exam Details: Few crackles at the bases - Cardiovascular Cardiovascular Exam: RRR - GI/Abdominal Additional GI/Abdominal Exam Details: Mass felt in the right upper quadrant which is somewhat tender - Rectal Rectal Exam: Deferred - External Exam: Deferred - Extremities Additional Extremities Exam Details: SCDs applied slight edema noted. - Neurological Additional Neurological Exam Details: Sleepy but arousable moving all limbs however he is generally weak. Assessment and Plan - Patient Problems (1) Metastatic melanoma Current Visit: Yes Status: Acute Comment: Pain seemed to be controlled with current pain medications. he Doesn't want me to make changes. Our goal is to keep him comfortable and he seems to be comfortable with the current medications. Code(s): C79.9 - Secondary malignant neoplasm of unspecified site (2) C. difficile colitis Current Visit: Yes Status: Acute Comment: Continue the Flagyl I think for 10 days and then will stop it Code(s): A04.7 - Enterocolitis due to Clostridium difficile (3) Autoimmune hepatitis treated with steroids Current Visit: Yes Status: Acute Comment: I'm not sure how this diagnosis was made but there is a note from the [facility] and mention elevated AST and ALT and this may be secondary to the cancer or autoimmune hepatitis so it's not clear to me whether the diagnosis of autoimmune hepatitis is firmly made. He is on steroid I think will start thinking about cutting back gradually on the dosage. Code(s): K75.4 - Autoimmune hepatitis (4) Hypothyroid Current Visit: Yes Status: Acute Comment: Same med Code(s): E03.9 - Hypothyroidism, unspecified Qualifiers: Hypothyroidism type: acquired Qualified Code(s): E03.9 - Hypothyroidism, unspecified (5) Elevated lipase Current Visit: Yes Status: Acute Comment: I think maybe secondary to the tumor causing infiltration of the pancreas and causing the elevated lipase. Code(s): R74.8 - Abnormal levels of other serum enzymes (6) Thrush Current Visit: Yes Status: Acute Comment: Will put him on Mycostatin. Code (s): B37.0 - Candidal stomatitis
[2017-04-06] MEDS ORDERED: Dexamethasone Tab 4 MG TABLET PO SCH (09:00)
[2017-04-06] MEDS: Famotidine Inj 20 MG in Normal Saline Flush 10 ML IVP SCH ×2 (09:54→22:11)
[2017-04-06] MEDS: NYSTATIN 100000 UNIT/1 ML - 5 ML UD CUP PO SCH ×4 (09:56→22:10)
[2017-04-06] MEDS: metroNIDAZOLE Tab 500 MG TAB PO SCH ×3 (09:57→22:11)
[2017-04-06] MEDS: ONDANSETRON 4 MG/2 ML VIAL IVP PRN (19:01)
[2017-04-07] MEDS: HYDROmorphone 2 MG/1 ML IVP PRN ×7 (01:10→21:56)
[2017-04-07] MEDS: ONDANSETRON 4 MG/2 ML VIAL IVP PRN ×4 (01:11→15:23)
[2017-04-07] MEDS: Sucralfate Tab 1 GM TAB PO SCH ×4 (06:44→21:57)
[2017-04-07] MEDS: OMEPRAZOLE 40 MG CAPSULE PO SCH ×2 (06:44→15:23)
[2017-04-07] MEDS: NORMAL SALINE 10 ML SYRINGE FLUSH IVP PRN ×4 (06:45→15:23)
--- NOTE | 2017-04-07 08:17 | PDOC(PROG) ---
Date and Time of Service: 04/07/2017 8:14 AM Interval History: Subjective he is saying he is still having the pain all over but the pain medication is helping and he doesn't want me to change the dosage, and it's only the IV medication that worked for him. He did vomit this morning. Apparently he was not due for the Zofran. I did discuss with him options of adding Reglan or Compazine however he doesn't want to now. I told him if symptoms persisted then will try the Compazine as he doesn't want the Reglan he said he would be angry if he takes it. Objective : Data - Labs CBC and BMP: 04/03/17 09:55 04/04/17 07:30 Objective : Exam - General Additional General Exam Details: Looks chronically L - Head Head Exam: Normal Inspection - Eye Additional Eye Exam Details: Left eye enucleated - Neck Neck Exam: Normal Inspection - Respiratory Additional Respiratory Exam Details: Crackles at the bases - Cardiovascular Cardiovascular Exam: RRR - GI/Abdominal Additional GI/Abdominal Exam Details: Hard mass in the right upper quadrant - External Exam: Deferred Exam: Deferred Assessment and Plan - Patient Problems (1) Metastatic melanoma Current Visit: Yes Status: Acute Comment: The issue is still pain control however the current pain Iv medications seems to be controlling his pain he doesn't want me to make changes. The by mouth pain medication did not work for him. Code(s): C79.9 - Secondary malignant neoplasm of unspecified site (2) C. difficile colitis Current Visit: Yes Status: Acute Comment: Continue Flagyl for total of 10- 14 days Code(s): A04.7 - Enterocolitis due to Clostridium difficile (3) Autoimmune hepatitis treated with steroids Current Visit: Yes Status: Acute Comment: As I said I'm not sure about the accuracy of this diagnosis I think we'll start cutting back on his steroid. Code(s): K75.4 - Autoimmune hepatitis (4) Hypothyroid Current Visit: Yes Status: Acute Comment: Same med Code(s): E03.9 - Hypothyroidism, unspecified Qualifiers: Hypothyroidism type: acquired Qualified Code(s): E03.9 - Hypothyroidism, unspecified (5) Elevated lipase Current Visit: Yes Status: Acute Comment: I think maybe secondary to the tumor causing infiltration of the pancreas and causing the elevated lipase. Code(s): R74.8 - Abnormal levels of other serum enzymes (6) Thrush Current Visit: Yes Status: Acute Comment: Continue Mycostatin Code(s): B37.0 - Candidal stomatitis
[2017-04-07] MEDS: Dexamethasone Tab 4 MG TABLET PO SCH (09:56)
[2017-04-07] MEDS: metroNIDAZOLE Tab 500 MG TAB PO SCH ×3 (09:56→21:57)
[2017-04-07] MEDS: Famotidine Inj 20 MG in Normal Saline Flush 10 ML IVP SCH ×2 (09:56→21:58)
[2017-04-07] MEDS: NYSTATIN 100000 UNIT/1 ML - 5 ML UD CUP PO SCH ×4 (09:56→21:57)
[2017-04-07] MEDS: LORazepam 2 MG/1 ML VIAL IVP PRN ×2 (10:14→18:21)
[2017-04-07] MEDS: LEVOTHYROXINE 137 MCG TABLET PO SCH (10:55)
[2017-04-07] MEDS: Ondansetron ODT Tab 8 MG TAB PO PRN (12:22)
[2017-04-08] MEDS: HYDROmorphone 2 MG/1 ML IVP PRN ×9 (00:16→22:44)
[2017-04-08] MEDS: LORazepam 2 MG/1 ML VIAL IVP PRN ×3 (00:17→20:14)
[2017-04-08] MEDS: ONDANSETRON 4 MG/2 ML VIAL IVP PRN ×5 (04:37→22:45)
[2017-04-08] MEDS: OMEPRAZOLE 40 MG CAPSULE PO SCH ×2 (06:46→16:55)
[2017-04-08] MEDS: Ondansetron ODT Tab 8 MG TAB PO PRN ×3 (06:46→20:14)
[2017-04-08] MEDS: Sucralfate Tab 1 GM TAB PO SCH ×5 (06:46→20:14)
[2017-04-08] MEDS: NORMAL SALINE 10 ML SYRINGE FLUSH IVP PRN ×6 (06:47→19:47)
[2017-04-08] MEDS: Famotidine Inj 20 MG in Normal Saline Flush 10 ML IVP SCH ×2 (08:04→20:13)
[2017-04-08] MEDS: LEVOTHYROXINE 137 MCG TABLET PO SCH (08:21)
[2017-04-08] MEDS: Dexamethasone Tab 4 MG TABLET PO SCH (08:21)
[2017-04-08] MEDS: metroNIDAZOLE Tab 500 MG TAB PO SCH ×3 (08:21→20:14)
[2017-04-08] MEDS: NYSTATIN 100000 UNIT/1 ML - 5 ML UD CUP PO SCH ×4 (08:22→20:13)
--- NOTE | 2017-04-08 09:21 | PDOC(PROG) ---
Date and Time of Service: 04/08/2017 9:19 AM Interval History: Subjective Patient is sleepy but arousable, he still says that his pain seems to be controlled with the current pain medications. Doesn't want changes to his medication. Objective : Data - Labs CBC and BMP: 04/03/17 09:55 04/04/17 07:30 Objective : Exam - General Additional General Exam Details: Looks chronically ill - Head Additional Head Exam Details: Left eye is enucleated - ENT ENT Exam: Normal Exam - Neck Neck Exam: Normal Inspection - Respiratory Respiratory Exam: Clear to Auscultation - Bilaterally - Cardiovascular Cardiovascular Exam: RRR - GI/Abdominal Additional GI/Abdominal Exam Details: Hard mass in the right midabdomen with enlarged liver - Rectal Rectal Exam: Deferred - External Exam: Deferred - Neurological Additional Neurological Exam Details: Sleepy but arousable generally weak - Psychiatric Psychiatric Exam: Flat Affect Assessment and Plan - Patient Problems (1) Metastatic melanoma Current Visit: Yes Status: Acute Comment: The issue is still pain control he is on IV pain medication and he doesn't want me to change medication as he is saying his pain is controlled with what he is getting. Code(s): C79.9 - Secondary malignant neoplasm of unspecified site (2) C. difficile colitis Current Visit: Yes Status: Acute Comment: Continue Flagyl for total of 10- 14 days Code(s): A04.7 - Enterocolitis due to Clostridium difficile (3) Autoimmune hepatitis treated with steroids Current Visit: Yes Status: Acute Comment: We are cutting back on the steroid. Code(s): K75.4 - Autoimmune hepatitis (4) Hypothyroid Current Visit: Yes Status: Acute Comment: Same med Code(s): E03.9 - Hypothyroidism, unspecified Qualifiers: Hypothyroidism type: acquired Qualified Code(s): E03.9 - Hypothyroidism, unspecified (5) Elevated lipase Current Visit: Yes Status: Acute Comment: I think maybe secondary to the tumor causing infiltration of the pancreas and causing the elevated lipase. Code(s): R74.8 - Abnormal levels of other serum enzymes (6) Thrush Current Visit: Yes Status: Acute Comment: Continue Mycostatin Code(s): B37.0 - Candidal stomatitis
[2017-04-08 13:51] VITALS: BP 147/86
--- NOTE | 2017-04-08 15:34 | PT AM DAY ---
AM - Physical Therapy S: The patient was not seen for an evaluation this morning due to being heavily medicated. We spoke with the nursing staff to have them contact the physical therapy department if the patient is willing and able to participate with physical therapy. NEIL
[2017-04-08 23:20] VITALS: RESP 12; TEMP 97.7
[2017-04-09] MEDS: HYDROmorphone 2 MG/1 ML IVP PRN ×2 (00:43→02:25)
[2017-04-09] MEDS: LORazepam 2 MG/1 ML VIAL IVP PRN (00:44)
[2017-04-09] MEDS ORDERED: HYDROmorphone 2 MG/1 ML IVP ONE (00:45)
[2017-04-09] MEDS ORDERED: LORazepam 2 MG/1 ML VIAL IVP ONE (00:50)
[2017-04-09] MEDS ORDERED: Morphine Sulfate Inj 250 MG in Sodium Chloride 0.9% 245 ML IV SCH (02:30)
[2017-04-09] MEDS ORDERED: MORPHINE IV ONE (02:37)
[2017-04-09] MEDS ORDERED: Sodium Chloride 0.9% 250 ML IV ONE (02:37)
[2017-04-09] MEDS: ONDANSETRON 4 MG/2 ML VIAL IVP PRN (02:50)
--- NOTE | 2017-04-09 08:09 | DCSUMMARY ---
Hospitalization Summary Admit Date: 03/29/17 Discharge Date: 04/09/17 Hospital Course: diagnosis 1. Metastatic malignant melanoma 2. Hypothyroidism 3. Recent episode of pancreatitis autoimmune versus secondary to tumor infiltration 4. Question of autoimmune hepatitis versus secondary to metastatic disease 5. C. difficile Hospital course This is a 36 years old male with medical history significant for history of malignant melanoma for which she had surgery and chemotherapy before. And also included an experimental regimen managed at the [facility] and M.Tawnya Pritchett. He developed a transaminitis and was thought may be this either secondary to the Terry or or secondary to autoimmune hepatitis. He presented to the hospital with his and [id number] with complaint of worsening pain. He was not doing well with oral pain medication as side effect that included severe confusion. Her he received IV Dilaudid and IV benzodiazepine and he was admitted for management of his the pain. Please see the note of Dr. White. Initially the patient was full code after discussion between Dr. White the rest of the family and the patient the patient's status was changed to DO NOT RESUSCITATE status. Patient did have a stool that was positive for C. difficile and he was treated for it. Patient's stayed in the hospital to try to manage and control his pain which required only IV pain medication to control it. I saw him later on during his hospital stay we continued with the IV Dilaudid and IV Ativan and at one point his pain did increase so we adjusted the dosage of the medications. I did offer them use of morphine drip if the pain is not controlled and the last few days he's been saying that his pain was controlled so we did not use it. Then on the [facility] [employer] [facility] of the April 09 patient pain increased we gave extra doses of Dilaudid and Ativan and eventually put him on morphine drip and the patient passed peacefully this morning. I initially also on when I saw the patient discussed with the family that's our aim is to keep him comfortable and will DC doing blood tests. They agreed on the plan. Laboratory Results 03/29/17 03/29/17 03/29/17 Range/Units 13:00 13:00 13:00 WBC 6.67 (4.8-10.8) 10^3/uL RBC 3.44 L (4.70-6.10) 10^6/uL Hgb 11.5 L (14.0-18.0) g/dL Hct 33.9 L (42.0-52.0) % MCV 98.5 H (80-90) FL MCH 33.4 H (27-31) PG MCHC 33.9 (33-37) g/dL RDW Std Deviation 56.3 H (39-50) fL RDW Coeff of Liya 16.6 H (11.5-14.5) % Plt Count 486 H (140-350) 10*3/uL MPV 8.2 (7.4-12.2) FL Immature Gran % (Auto) 0.1 (0-5) % Neut % (Auto) 86.2 H (50-80) % Lymph % (Auto) 10.9 (10-50) % Meeker % (Auto) 2.8 L (5-15) % Eos % (Auto) 0 (0-8) % Baso % (Auto) 0 (0-1) % Immature Gran # (Auto) 0.01 10*3/UL Neut # (Auto) 5.74 10*3/UL Lymph # (Auto) 0.73 10*3/uL [place]eker # (Auto) 0.19 L (0.3-0.8) 10*3/UL Eos # (Auto) 0 10*3/UL Baso # (Auto) 0 10*3/UL WBC Morphology Comment Normal morphology (NORM) Plt Morphology Comment Normal morphology (NORM) RBC Morph Comment Normal morphology (NORM) PT (9.7-11.4) secs INR (0.00-5.90) N/A Sodium 132 L (135-145) meq/L Potassium 3.6 L (3.8-5.2) meq/L Chloride 95 L (98-112) meq/L Carbon Dioxide 29 (23-33) meq/L Anion Gap 8 (5-20) BUN 21 (7-22) mg/dL Creatinine 0.8 (0.70-1.50) mg/dL Estimated GFR > 60 (>60 ml/min/1.73m(2)) BUN/Creatinine Ratio 26.25 H (6-20) Glucose 103 (78-110) mg/dL Calculated Osmolality 276.0 (267-292) mOsm/kg Calcium 7.9 L (8.7-10.7) mg/dL Magnesium 1.8 (1.6-2.4) mg/dL Total Bilirubin 0.7 (0.3-1.2) mg/dL AST 115 H (21-57) IU/L ALT 76 H (21-72) IU/L Alkaline Phosphatase 506 H (38-126) IU/L Ammonia (9.0-33.0) UMOL/L Total Protein 5.3 L (6.1-8.0) g/dL Albumin 2.7 L (3.5-4.8) g/dL Globulin 2.6 (2.50-4.10) g/dL Albumin/Globulin Ratio 1.00 L (1.3-2.0) mg/g Amylase 246 H (30-110) U/L Lipase 932 H (23-300) IU/L 03/29/17 03/30/17 03/30/17 Range/Units 19:49 04:55 04:55 WBC 8.42 (4.8-10.8) 10^3/uL RBC 3.73 L (4.70-6.10) 10^6/uL Hgb 12.4 L (14.0-18.0) g/dL Hct 37.1 L (42.0-52.0) % MCV 99.5 H (80-90) FL MCH 33.2 H (27-31) PG MCHC 33.4 (33-37) g/dL RDW Std Deviation 59.3 H (39-50) fL RDW Coeff of Liya 17.1 H (11.5-14.5) % Plt Count 549 H (140-350) 10*3/uL MPV 8.3 (7.4-12.2) FL Immature Gran % (Auto) 0.1 (0-5) % Neut % (Auto) 64.2 (50-80) % Lymph % (Auto) 32.4 (10-50) % [place] % (Auto) 2.9 L (5-15) % Eos % (Auto) 0.2 (0-8) % Baso % (Auto) 0.2 (0-1) % Immature Gran # (Auto) 0.01 10*3/UL Neut # (Auto) 5.40 10*3/UL Lymph # (Auto) 2.73 10*3/uL [place]eker # (Auto) 0.24 L (0.3-0.8) 10*3/UL Eos # (Auto) 0.02 10*3/UL Baso # (Auto) 0.02 10*3/UL WBC Morphology Comment Normal morphology (NORM) Plt Morphology Comment Normal morphology (NORM) RBC Morph Comment Normal morphology (NORM) PT 12.4 H (9.7-11.4) secs INR 1.17 (0.00-5.90) N/A Sodium (135-145) meq/L Potassium (3.8-5.2) meq/L Chloride (98-112) meq/L Carbon Dioxide (23-33) meq/L Anion Gap (5-20) BUN (7-22) mg/dL Creatinine (0.70-1.50) mg/dL Estimated GFR (>60 ml/min/1.73m(2)) BUN/Creatinine Ratio (6-20) Glucose (78-110) mg/dL Calculated Osmolality (267-292) mOsm/kg Calcium (8.7-10.7) mg/dL Magnesium (1.6-2.4) mg/dL Total Bilirubin (0.3-1.2) mg/dL AST (21-57) IU/L ALT (21-72) IU/L Alkaline Phosphatase (38-126) IU/L Ammonia < 9 L (9.0-33.0) UMOL/L Total Protein (6.1-8.0) g/dL Albumin (3.5-4.8) g/dL Globulin (2.50-4.10) g/dL Albumin/Globulin Ratio (1.3-2.0) mg/g Amylase (30-110) U/L Lipase (23-300) IU/L 03/30/17 03/31/17 03/31/17 Range/Units 04:55 04:40 04:40 WBC 4.91 (4.8-10.8) 10^3/uL RBC 3.34 L (4.70-6.10) 10^6/uL Hgb 11.0 L (14.0-18.0) g/dL Hct 33.6 L (42.0-52.0) % MCV 100.6 H (80-90) FL MCH 32.9 H (27-31) PG MCHC 32.7 L (33-37) g/dL RDW Std Deviation 59.5 H (39-50) fL RDW Coeff of Liya 17.3 H (11.5-14.5) % Plt Count 414 H (140-350) 10*3/uL MPV 8.6 (7.4-12.2) FL Immature Gran % (Auto) 0.2 (0-5) % Neut % (Auto) 76.1 (50-80) % Lymph % (Auto) 19.8 (10-50) % [place]eker % (Auto) 3.7 L (5-15) % Eos % (Auto) 0.2 (0-8) % Baso % (Auto) 0 (0-1) % Immature Gran # (Auto) 0.01 10*3/UL Neut # (Auto) 3.74 10*3/UL Lymph # (Auto) 0.97 10*3/uL Meeker # (Auto) 0.18 L (0.3-0.8) 10*3/UL Eos # (Auto) 0.01 10*3/UL Baso # (Auto) 0 10*3/UL WBC Morphology Comment Normal morphology (NORM) Plt Morphology Comment Normal morphology (NORM) RBC Morph Comment Normal morphology (NORM) PT (9.7-11.4) secs INR (0.00-5.90) N/A Sodium 133 L 131 L (135-145) meq/L Potassium 3.9 3.9 (3.8-5.2) meq/L Chloride 95 L 99 (98-112) meq/L Carbon Dioxide 29 27 (23-33) meq/L Anion Gap 9 5 (5-20) BUN 20 17 (7-22) mg/dL Creatinine 0.9 0.8 (0.70-1.50) mg/dL Estimated GFR > 60 > 60 (>60 ml/min/1.73m(2)) BUN/Creatinine Ratio 22.22 H 21.25 H (6-20) Glucose 75 L 71 L (78-110) mg/dL Calculated Osmolality 277.0 271.0 (267-292) mOsm/kg Calcium 8.2 L 8.0 L (8.7-10.7) mg/dL Magnesium 1.8 (1.6-2.4) mg/dL Total Bilirubin 0.7 0.6 (0.3-1.2) mg/dL AST 118 H 124 H (21-57) IU/L ALT 77 H 72 (21-72) IU/L Alkaline Phosphatase 518 H 427 H (38-126) IU/L Ammonia 12 (9.0-33.0) UMOL/L Total Protein 5.8 L 5.2 L (6.1-8.0) g/dL Albumin 3.0 L 2.7 L (3.5-4.8) g/dL Globulin 2.8 2.5 (2.50-4.10) g/dL Albumin/Globulin Ratio 1.00 L 1.00 L (1.3-2.0) mg/g Amylase (30-110) U/L Lipase 962 H (23-300) IU/L 04/03/17 04/03/17 04/04/17 Range/Units 09:55 09:55 07:30 WBC 4.36 L (4.8-10.8) 10^3/uL RBC 3.40 L (4.70-6.10) 10^6/uL Hgb 11.3 L (14.0-18.0) g/dL Hct 33.7 L (42.0-52.0) % MCV 99.1 H (80-90) FL MCH 33.2 H (27-31) PG MCHC 33.5 (33-37) g/dL RDW Std Deviation 60.3 H (39-50) fL RDW Coeff of Liya 17.4 H (11.5-14.5) % Plt Count 336 (140-350) 10*3/uL MPV 8.8 (7.4-12.2) FL Immature Gran % (Auto) 0.2 (0-5) % Neut % (Auto) 72.8 (50-80) % Lymph % (Auto) 21.1 (10-50) % Meeker % (Auto) 5.7 (5-15) % Eos % (Auto) 0 (0-8) % Baso % (Auto) 0.2 (0-1) % Immature Gran # (Auto) 0.01 10*3/UL Neut # (Auto) 3.17 10*3/UL Lymph # (Auto) 0.92 10*3/uL Meeker # (Auto) 0.25 L (0.3-0.8) 10*3/UL Eos # (Auto) 0 10*3/UL Baso # (Auto) 0.01 10*3/UL WBC Morphology Comment Normal morphology (NORM) Plt Morphology Comment Normal morphology (NORM) RBC Morph Comment Normal morphology (NORM) PT (9.7-11.4) secs INR (0.00-5.90) N/A Sodium 129 L 128 L (135-145) meq/L Potassium 4.4 4.6 (3.8-5.2) meq/L Chloride 98 96 L (98-112) meq/L Carbon Dioxide 23 16 L (23-33) meq/L Anion Gap 8 16 (5-20) BUN 28 H 37 H (7-22) mg/dL Creatinine 1.0 1.8 H (0.70-1.50) mg/dL Estimated GFR > 60 43 (>60 ml/min/1.73m(2)) BUN/Creatinine Ratio 28.00 H 20.55 H (6-20) Glucose 94 105 (78-110) mg/dL Calculated Osmolality 273.0 274.0 (267-292) mOsm/kg Calcium 8.0 L 8.4 L (8.7-10.7) mg/dL Magnesium (1.6-2.4) mg/dL Total Bilirubin 0.9 1.0 (0.3-1.2) mg/dL AST 234 H 487 H (21-57) IU/L ALT 92 H 169 H (21-72) IU/L Alkaline Phosphatase 443 H 482 H (38-126) IU/L Ammonia (9.0-33.0) UMOL/L Total Protein 5.2 L 5.7 L (6.1-8.0) g/dL Albumin 2.7 L 3.1 L (3.5-4.8) g/dL Globulin 2.5 2.6 (2.50-4.10) g/dL Albumin/Globulin Ratio 1.00 L 1.10 L (1.3-2.0) mg/g Amylase (30-110) U/L Lipase 2418 H* (23-300) IU/L Exam - Vitals Vital Signs: Vital Signs Temperature 97.7 F Temperature Source Temporal Artery Scan Pulse Rate [Apical] 97 Pulse Rate [Pulse Oximeter] 132 Respiratory Rate 12 Blood Pressure [Right Arm] 147/86 Blood Pressure [Left Arm] 162/117 Pulse Ox 87 Oxygen Flow Rate 10 Oxygen Delivery Method Non-Rebreather Mask Height 5 ft 11 in Weight 216 lb 4.8 oz Patient Problems - Patient Problem List (1) Metastatic melanoma Status: Acute Comment: The issue is still pain control he is on IV pain medication and he doesn't want me to change medication as he is saying his pain is controlled with what he is getting. Code(s): C79.9 - Secondary malignant neoplasm of unspecified site Category: Medical (2) C. difficile colitis Status: Acute Comment: Continue Flagyl for total of 10-14 days Code(s): A04.7 - Enterocolitis due to Clostridium difficile Category: Medical (3) Autoimmune hepatitis treated with steroids Status: Acute Comment: We are cutting back on the steroid. Code(s): K75.4 - Autoimmune hepatitis Category: Medical (4) Hypothyroid Status: Acute Comment: Same med Code(s): E03.9 - Hypothyroidism, unspecified Qualifiers: Hypothyroidism type: acquired Qualified Code(s): E03.9 - Hypothyroidism, unspecified Category: Medical (5) Elevated lipase Status: Acute Comment: I think maybe secondary to the tumor causing infiltration of the pancreas and causing the elevated lipase. Code(s): R74.8 - Abnormal levels of other serum enzymes Category: Medical (6) Thrush Status: Acute Comment: Continue Mycostatin Code(s): B37.0 - Candidal stomatitis Category: Medical
== END 2017-04-09 04:45 | disposition expired | DRG 948 ==
LOC: ER 12:18 → MED/SURG 12:43
PROVIDERS: ADMIT Family Medicine; ATTEND Family Medicine